=== PATIENT | male | born 1965 | race Asian ===

== ENCOUNTER 2021-11-25 22:21 | Inpatient (IN) | payer OTHER ==
[~2021-11-25] VITALS: Ht 175.3 cm; Wt 59.1 kg
--- NOTE | 2021-11-25 22:40 | NUR ---
ARIELA Hedrick FROM [facility] FOR LOW O2 SAT. ON IV LEVAQUIN FOR PHARYNGITIS. PATIENT ALERT AND ORIENTED X2. BROUGHT IN BY STRETCHER AND PLACED ON BED 03 ON MONITOR AND POX.
--- NOTE | 2021-11-25 22:46 | NUR ---
EMT @ BEDSIDE FOR EKG
--- NOTE | 2021-11-25 22:48 | NUR ---
SON IS AT BEDSIDE.
--- NOTE | 2021-11-25 23:05 | NUR ---
COVID SWAB DONE AND SENT TO LAB
[2021-11-25] MEDS ORDERED: LIDOCAINE 2% JEL UROJET 10 ML MM ONE ×2 (23:13→23:18)
[2021-11-25] MEDS ORDERED: ACETAMINOPHEN 650 MG/SUPP.RECT RC ONE ×3 (23:24→23:36)
[2021-11-25] MEDS ORDERED: IV NS 0.9% 1,000 ML BAG IV ONE (23:30)
[2021-11-25] MEDS ORDERED: VANCOMYCIN 1 GM in IV D5W 250 ML IV ONE (23:30)
[2021-11-25] MEDS ORDERED: PIPERACILLIN /TAZOBACTAM 3.375 G in IV D5W 50 ML IV ONE (23:30)
[2021-11-25] MEDS ORDERED: PIPERACILLIN /TAZOBACTAM 3.375 G VIAL IV ONE (23:35)
[2021-11-25] MEDS ORDERED: VANCOMYCIN 1 GM VIAL ONE (23:35)
--- NOTE | 2021-11-25 23:35 | NUR ---
BLOOD COLLECTED AND SENT TO LAB
[2021-11-25 23:38] LABS: ABG BASE EXCESS -5.5 mmol/L; ABG PCO2 28.6 mmHg (35.0-45.0); ABG PH 7.403 (7.350-7.450); ABG PO2 73.2 mmHg (75.0-100.0); COHb 0.3 % (0.5-1.5); MetHb 0.4 % (0.0-1.5); O2Hb 93.7 % (94.0-97.0); SITE, ABG Right Radial; VENT MODE, BG 15L NRB
[2021-11-25 23:53] LABS: BILIRUBIN,URINE SMALL (NEGATIVE); COLOR,URINE YELLOW (YELLOW); LEUKOCYTE ESTERASE ,URINE NEGATIVE (NEGATIVE); NITRITE, URINE NEGATIVE (NEGATIVE); PH,URINE 5.5 (5.0-8.0); PROTEIN,URINE 30 mg/dl (NEGATIVE); UGLUCOSE NEGATIVE (NEGATIVE); UROBILINOGEN,URINE 0.2 EU/dL (0.2)
[2021-11-25 23:53] LABS: BASOPHILS % (AUTO) 0.2 % (0.0-2.0); HEMATOCRIT 58 % (39-51); HEMOGLOBIN 18.3 g/dL (13.5-17.5); LYMPHOCYTES # (AUTO) 1.2 K/uL (0.8-4.8); LYMPHOCYTES % (AUTO) 8.1 % (20.0-44.0); MEAN CORPUSCULAR HGB CONC 32 g/dl (31.0-36.0); MEAN CORPUSCULAR VOLUME 89 fL (80-96); MONOCYTES # (AUTO) 0.4 K/uL (0.1-1.30); MONOCYTES % (AUTO) 2.8 % (2.0-12.0); NEUTROPHILS # (AUTO) 12.9 K/uL (1.8-8.9); NEUTROPHILS % (AUTO) 88.9 % (43.0-81.0); PLATELET COUNT (AUTO) 245 K/uL (150-450); RED BLOOD CELL COUNT(AUTO) 6.46 MIL/uL (4.5-6.0); WHITE BLOOD COUNT (AUTO) 14.6 K/uL (4.3-11.0)
[2021-11-26] VITALS (14 sets, daily range): BP systolic 88–124; BP diastolic 57–94
[2021-11-26] MEDS ORDERED: ONDANSETRON HCL/PF 4 MG/2 ML VIAL IVP PRN
[2021-11-26] MEDS ORDERED: PROPOFOL 100 ML ONE ×2 (00:16→07:21)
[2021-11-26 00:22] LABS: ALANINE AMINOTRANSFERASE 23 U/L (12-78); ALBUMIN 3.9 g/dL (3.4-5.0); ALKALINE PHOSPHATASE 74 U/L (46-116); ASPARTATE AMINOTRANSFERASE 31 U/L (15-37); BILIRUBIN,DIRECT 0.3 mg/dL (0.0-0.2); CALCIUM, SERUM 8.9 mg/dL (8.5-10.1); CARBON DIOXIDE 22 mmol/L (21-32); CREATININE 1.9 mg/dL (0.6-1.3); GLUCOSE 151 mg/dL (74-106); POTASSIUM 3.3 mmol/L (3.5-5.1); TOTAL PROTEIN, SERUM 9.7 g/dL (6.4-8.2); UREA NITROGEN, BLOOD 36 mg/dL (7-18)
[2021-11-26 00:24] LABS: CHLORIDE 126 mmol/L (98-107); SODIUM SERUM 168 mmol/L (136-145)
--- NOTE | 2021-11-26 00:25 | NUR ---
0019 15MG ETOMIDATE 0020 50MG ROCURNOIUM 0022 INTUBATED ET TUBE SIZE 7. 23 AT THE LIP. POSITIVE COLOR CHANGE. 0024 16F NG TUBE INSERTED @65. PLACEMENT CONFIRMED VIA AUSCULTATION AND +STOMACH CONTENTS WITHDRAWN. XRAY AT BEDSIDE TO CONFIRM PLACEMENT
--- NOTE | 2021-11-26 00:37 | NUR ---
RT pt intubated and placed on mechanical vent per airway safety. ett size 7.0, 22@lip. vent settings: AC 24 132610% +5. vent plugged in to red outlet. ambu bag at bedside. lung sounds course. pepper thick secretions suctioned via ett. no sob, no resp distress. will continue to monitor.
--- NOTE | 2021-11-26 00:55 | NUR ---
PT TRANSPORTED TO CT
[2021-11-26] MEDS ORDERED: DEXTROSE 50%-WATER 50 ML DISP.SYRIN IV PRN (01:00)
[2021-11-26] MEDS ORDERED: IV D5/ 0.9% NACL 1,000 ML IV PRN (01:00)
--- NOTE | 2021-11-26 01:12 | NUR ---
PT RETURNED FROM CT
--- NOTE | 2021-11-26 01:14 | NUR ---
RT pt taken to ct and back. no complications during transportation or procedure. ambu bag on hand. vent plugged in to red outlet upon return.
--- NOTE | 2021-11-26 01:47 | NUR ---
NG TUBE ADVANCED TO 70 PER RADIOLOGIST REPORT RECOMMENDATION
[2021-11-26] MEDS ORDERED: LEVETIRACETAM (500MG) 500 MG/5 ML VIAL IV ONE (01:50)
[2021-11-26] MEDS ORDERED: DEXAMETHASONE SOD PHOSPHATE 10 MG/ML VIAL ONE (01:50)
--- NOTE | 2021-11-26 01:56 | NUR ---
SHAWNA, SON: [phone]
[2021-11-26] MEDS: LEVETIRACETAM (500MG) 1,000 MG in IV NS 0.9% 100 ML IV SCH ×3 (01:59→21:27)
[2021-11-26] MEDS ORDERED: DEXAMETHASONE SOD PHOSPHATE 10 MG/ML VIAL IV ONE (02:00)
--- NOTE | 2021-11-26 02:03 | NUR ---
NEW VENT SETTING: AC28, FiO2: 50%, TV:500, PEEP 5
[2021-11-26 02:14] LABS: ABG BASE EXCESS -5.4 mmol/L; ABG PCO2 35.1 mmHg (35.0-45.0); ABG PH 7.356 (7.350-7.450); ABG PO2 363.8 mmHg (75.0-100.0); COHb 0.3 % (0.5-1.5); MetHb 0.6 % (0.0-1.5); O2Hb 98.3 % (94.0-97.0); PEEP,BG 5 cm H2O; SITE, ABG Right Radial; VENT MODE, BG AC24 500 100 +5; VT, ABG 500 mL
[2021-11-26 04:57] LABS: CALCIUM, SERUM 7.9 mg/dL (8.5-10.1); CREATININE 1.7 mg/dL (0.6-1.3); MAGNESIUM 2.5 mg/dL (1.8-2.4); PHOSPHORUS 3.4 mg/dL (2.5-4.9)
[2021-11-26 05:08] LABS: POTASSIUM 3.4 mmol/L (3.5-5.1)
[2021-11-26] MEDS ORDERED: PIPERACILLIN /TAZOBACTAM 3.375 G VIAL IV ONE (05:09)
[2021-11-26] MEDS ORDERED: ZOSYN IVPB 3.375 G in IV D5W 50ml IV ONE (05:30)
[2021-11-26 05:37] LABS: BASOPHILS % (AUTO) 0.1 % (0.0-2.0); HEMATOCRIT 48 % (39-51); HEMOGLOBIN 15.3 g/dL (13.5-17.5); LYMPHOCYTES # (AUTO) 0.6 K/uL (0.8-4.8); LYMPHOCYTES % (AUTO) 6.1 % (20.0-44.0); MEAN CORPUSCULAR HGB CONC 32 g/dl (31.0-36.0); MEAN CORPUSCULAR VOLUME 90 fL (80-96); MONOCYTES # (AUTO) 0.4 K/uL (0.1-1.30); MONOCYTES % (AUTO) 4.1 % (2.0-12.0); NEUTROPHILS # (AUTO) 9.1 K/uL (1.8-8.9); NEUTROPHILS % (AUTO) 89.7 % (43.0-81.0); PLATELET COUNT (AUTO) 147 K/uL (150-450); RED BLOOD CELL COUNT(AUTO) 5.34 MIL/uL (4.5-6.0); WHITE BLOOD COUNT (AUTO) 10.1 K/uL (4.3-11.0)
[2021-11-26] MEDS: BLOOD SUGAR DIAGNOSTIC 1 EACH STRIP IN SCH ×3 (06:00→17:38)
[2021-11-26] MEDS ORDERED: ETOMIDATE 2 MG/ML VIAL IV ONE ×2 (06:00→08:04)
[2021-11-26] MEDS ORDERED: INSULIN REGULAR, HUMAN 100 UNIT/ML 10 ML VIAL ONE (06:05)
[2021-11-26] MEDS: INSULIN REGULAR, HUMAN 100 UNIT/ML 3 ML VIAL SQ PRN ×3 (06:21→17:25)
[2021-11-26] MEDS: IV D5W 1,000 ML IV PRN ×2 (06:33→17:10)
--- NOTE | 2021-11-26 06:59 | NUR ---
ICU 253
[2021-11-26] MEDS ORDERED: MIRT-121 PO (07:36)
[2021-11-26] MEDS ORDERED: CALC1TAB91 PO (07:36)
[2021-11-26] MEDS ORDERED: OMEG-88 PO (07:36)
[2021-11-26] MEDS ORDERED: MULT-439 PO (07:36)
[2021-11-26] MEDS ORDERED: CHOL200013 PO (07:36)
[2021-11-26] MEDS ORDERED: LEVO500P10 IV (07:36)
[2021-11-26] MEDS ORDERED: ATOR80TA PO (07:36)
[2021-11-26] MEDS ORDERED: CRAN3875 PO (07:36)
[2021-11-26] MEDS ORDERED: ACET-2605 PO (07:36)
[2021-11-26] MEDS ORDERED: AMIN30LI2 PO (07:36)
[2021-11-26] MEDS ORDERED: DOCU-141 PO (07:36)
[2021-11-26] MEDS ORDERED: CRAN425C6 PO (07:36)
--- NOTE | 2021-11-26 07:44 | NUR ---
NEW ROOM 255
--- NOTE | 2021-11-26 07:48 | NUR ---
REPORT GIVEN TO NURSE MAYER FROM ICU FOR SID
[2021-11-26] MEDS ORDERED: ROCURONIUM BROMIDE 50 MG/5 ML IV ONE (08:04)
--- NOTE | 2021-11-26 08:10 | NUR ---
RN NOTE RECEIVED REPORT FROM JERSEY STRANGE IN ER. AWAITING PATIENT ARRIVAL
--- NOTE | 2021-11-26 08:38 | NUR ---
THE PATIENT IS TRANSFERED TO [facility] IN STABLE CONDITION AND PER ACLS POLICY.
[2021-11-26] MEDS ORDERED: POTASSIUM CL. PREMIX PERIPHER. 50 ML IV SCH (11:00)
[2021-11-26] MEDS: ZOSYN IVPB 4.5 G in IV D5W 50ml IV SCH ×3 (11:57→23:35)
[2021-11-26 12:21] LABS: BACTERIA,URINE None seen /HPF (None Seen); SQUAMOUS EPITHELIAL CELL,UR Rare /HPF (None Seen); WBC,URINE 0-2 /HPF (0-3)
[2021-11-26] MEDS: PROPOFOL 100 ML IV PRN ×2 (15:38→21:26)
[2021-11-26 16:10] LABS: ABG BASE EXCESS -7.3 mmol/L; ABG OXYGEN SATURATION 96.8 % (92.0-98.5); ABG PCO2 23.3 mmHg (35.0-45.0); ABG PH 7.422 (7.350-7.450); ABG PO2 91.1 mmHg (75.0-100.0); AaDO2 239.2 mmHg; MetHb 0.2 % (0.0-1.5); O2Hb 96.6 % (94.0-97.0); PEEP,BG 5 cm H2O; SITE, ABG Right Radial; VT, ABG 500 mL
--- NOTE | 2021-11-26 16:28 | NUR ---
RN NOTE DR. CASTANEDA NOTIFIED OF PATIENT'S TROPONIN 3.269
--- NOTE | 2021-11-26 16:39 | NUR ---
RN NOTE NOTIFIED DR. CASTANEDA OF LACTIC ACID 2.6
--- NOTE | 2021-11-26 18:59 | NUR ---
RN NOTE PATIENT IS IN BED WITH HOB AT SEMI FOWLERS POSITION. PATIENT IS ON VENT WITH NO SIGNS OF LABORED BREATHING. PRATHER CATHETER IS IN PLACE. LAC 18, LWRIST, AND LHAND IV ACCESS ARE ALL PATENT AND INTACT. BED IS LOCKED IN THE LOWEST POSITION, 3 GUARD RAILS RAISED, CALL REYNOLDS WITHIN REACH, AND ALL HOSPITAL SAFETY PRECAUTIONS ARE BEING FOLLOWED. PATIENT REMAINED STABLE THROUGHOUT SHIFT. WILL ENDORSE TO SENIOR STRATEGY ANALYST RN.
[2021-11-26 19:20] LABS: BAND % (MANUAL) 8 % (0.0-5.0); LYMPHOCYTES % (MANUAL) 17 % (16-48); MONOCYTES % (MANUAL) 1 % (0-11.0); NEUTROPHILS % (MANUAL) 74 (42-76)
--- NOTE | 2021-11-26 20:00 | NUR ---
RN/ICU-RECEIVED PT. ON THE VENT PER ETT, ON AC MODE, FIO2-50%, SATS.-98%, EKG SR W/ HR-72, POST SEDATED W/ DIPRIVAN GTT. AT 30 MCG/KG/MIN. NO JAEGER.NGT IN PLACE AND CLAMPED. FC IN PLACE W/ MODERATE AMOUNT OF U/O. AFEBRILE ,NO S/S OF PAIN OR DISTRESS. ON AIRBORNE/DROPLET ISOLATION PENDING PCR FOR COVID 19.PRECAUTIONS IN EFFECT.
--- NOTE | 2021-11-26 21:40 | NUR ---
RN/ICU-SPOKE TO NATO JERRY REGARDING PT. PT/INR-15.2/1.48. SHE WILL REORDER ANOTHER COAGS. PER XRAY DEPARTMENT ZIA, THE COAG. HAS TO BE NORMAL TO PERFORM CT GUIDED NEEDLE BIOPSY/DRAINAGE OF ABDOMINAL NECROTIC LYMPH NODE VS MASS.
[2021-11-26] MEDS: VANCOMYCIN 1 GM in IV D5W 250ml IV SCH (22:52)
[2021-11-27] VITALS (31 sets, daily range): BP systolic 82–131; BP diastolic 66–89
[2021-11-27] MEDS: BLOOD SUGAR DIAGNOSTIC 1 EACH STRIP IN SCH ×5 (00:04→23:29)
[2021-11-27] MEDS: INSULIN REGULAR, HUMAN 100 UNIT/ML 3 ML VIAL SQ PRN ×3 (00:05→23:29)
[2021-11-27] MEDS: PROPOFOL 100 ML IV PRN ×3 (04:00→22:25)
[2021-11-27] MEDS: ZOSYN IVPB 4.5 G in IV D5W 50ml IV SCH ×3 (05:49→18:38)
[2021-11-27 06:13] LABS: HEMATOCRIT 45 % (39-51); HEMOGLOBIN 14.4 g/dL (13.5-17.5); LYMPHOCYTES % (AUTO) 6.9 % (20.0-44.0); MEAN CORPUSCULAR HGB CONC 32 g/dl (31.0-36.0); MEAN CORPUSCULAR VOLUME 88 fL (80-96); MONOCYTES # (AUTO) 0.4 K/uL (0.1-1.30); MONOCYTES % (AUTO) 3.2 % (2.0-12.0); NEUTROPHILS # (AUTO) 12.5 K/uL (1.8-8.9); NEUTROPHILS % (AUTO) 89.9 % (43.0-81.0); PLATELET COUNT (AUTO) 125 K/uL (150-450); RED BLOOD CELL COUNT(AUTO) 5.07 MIL/uL (4.5-6.0); WHITE BLOOD COUNT (AUTO) 13.9 K/uL (4.3-11.0)
--- NOTE | 2021-11-27 06:30 | NUR ---
RN/ICU-FOR CT GUIDED NEEDLE BIOPSY/ DRAINAGE OF ABDOMINAL NECROTIC LYMPH NODE VS MASS, ATTEMPTED TO GET HOLD OF SISTER JERI FOR CONSENT(TEL. NO-[phone]), MESSAGE LEFT, ALSO CALLED SISTER MICHAELA DEL RIO AT PHONE NO. [phone] TO NO AVAIL, WILL FOLLOW UP TODAY.
[2021-11-27 07:05] LABS: CALCIUM, SERUM 8.6 mg/dL (8.5-10.1); CREATININE 2.4 mg/dL (0.6-1.3); MAGNESIUM 2.2 mg/dL (1.8-2.4); PHOSPHORUS 3.3 mg/dL (2.5-4.9); POTASSIUM 3.4 mmol/L (3.5-5.1)
--- NOTE | 2021-11-27 07:23 | NUR ---
RN OPENING NOTE RECEIVE REPORT FROM HYDROBLASTER NURSE. PATIENT IN STABLE CONDITION. REQUIRING VENTILATOR SUPPORT. VENT SETTING: AC 28, TV 500, FIO2 50%, PEEP 5. PATIENT IS SEDATED ON PROPOFOL DRIP @ 30MCG/KG/MIN. RUNNING D5W @ 100ML/HR. WILL FOLLOW MORNING LAB AND DOCTOR ORDERS. PROPER ISOLATION PRECAUTION IN PLACE. ALL SAFETY MEASURE IN PLACE. BED ON LOWEST POSITION WITH HOB ELEVATED WITH 3 SIDE RAIL UP. WILL CONTINUE TO MONITOR.
[2021-11-27 08:04] LABS: ABG BASE EXCESS -4.4 mmol/L; ABG OXYGEN SATURATION 98.6 % (92.0-98.5); ABG PCO2 21.7 mmHg (35.0-45.0); ABG PO2 138.2 mmHg (75.0-100.0); AaDO2 193.9 mmHg; COHb 0.3 % (0.5-1.5); MetHb 0.2 % (0.0-1.5); O2Hb 98.1 % (94.0-97.0); PEEP,BG 5 cm H2O; SITE, ABG Right Radial; VT, ABG 500 mL
[2021-11-27] MEDS: LEVETIRACETAM (500MG) 1,000 MG in IV NS 0.9% 100 ML IV SCH (09:20)
[2021-11-27] MEDS: IV D5W 1,000 ML IV PRN ×2 (09:30→23:50)
[2021-11-27] MEDS ORDERED: POTASSIUM CL. PREMIX PERIPHER. 50 ML IV SCH (10:00)
[2021-11-27] MEDS: GLUCERNA 1.2 1,000 ML BOTTLE NG PRN (16:29)
--- NOTE | 2021-11-27 19:05 | NUR ---
RECEIVED PT ON BED SEDATED ON ETT/VENT SETTING PER MD FIO2 30% PEEP 5 SPO2 100% NO SIGN OF RESPIRATORY DISTRESS, TELE MONITOR READS SINUS RHYTHM 70'S HAVE ONGOING DIPRIVAN @ 35MCG/KG/MIN AND D5W@50ML/HR INFUSING VIA RAC#18 INFUSING WELL, HAVE PRATHER CATHETER WITH PINK TINGED URINE DRAINING VIA GRAVITY MD IS AWARE PER AM SHIFT NURSE, BED ON LOWEST POSITION AND LOCKED SIDE RAILS UP X2 HAVE BILATERAL WRIST SOFT RESTRAINTS FOR SELF EXTUBATION PRECAUTION, CIRCULATION WILL BE MONITOR REGULARLY, WILL CONT TO MONITOR
--- NOTE | 2021-11-27 19:15 | NUR ---
RN CLOSING NOTE PATIENT IN STABLE CONDITION. REMAIN ON VENTILATOR. SETTING, AC 16, TV 500, FIO2 30%, PEEP 5. BLOOD IN URINE VIA PRATHER CATHETER NOTED THIS AFTERNOON. DR. BHATT IS AWARE. NG TUBE FEEDING HAVE BEEN STARTED WITH GLUCERNA @ 20ML/HR. RECEIVING D5W @100ML/HR. SEDATION VACATION WAS DONE. TURN OFF SEDATION AT 1512. PATIENT ABLE TO ANSWER QUESTIONS BY NODDING HEAD. PATIENT WAS CHANGED AND REPOSITION PER PROTOCOL. PROPER ISOLATION IN PLACE. ALL SAFETY MEASURE IN PLACE. BED ON LOWEST POSITION WITH HOB ELEVATED AND 3 SIDE RAIL UP. REPORT WAS GIVEN TO BROOMMAKER NURSE.
[2021-11-27] MEDS: PROSOURCE / PROSTAT (PYXIS) 30 ML UDC NG SCH (19:50)
[2021-11-27] MEDS: LEVETIRACETAM SOL (5 ML) 100 MG/ML UDC GT SCH (20:35)
[2021-11-27] MEDS: ATORVASTATIN 40 MG TABLET NG SCH (21:03)
[2021-11-27] MEDS: MIRTAZAPINE 15 MG TABLET NG SCH (21:04)
[2021-11-27] MEDS: VANCOMYCIN 1 GM in IV D5W 250ml IV SCH (23:49)
[2021-11-28] VITALS (51 sets, daily range): BP systolic 89–148; BP diastolic 68–110
[2021-11-28] MEDS: ZOSYN IVPB 4.5 G in IV D5W 50ml IV SCH ×5 (00:32→23:34)
[2021-11-28] MEDS: INSULIN REGULAR, HUMAN 100 UNIT/ML 3 ML VIAL SQ PRN ×4 (06:10→23:33)
[2021-11-28] MEDS: BLOOD SUGAR DIAGNOSTIC 1 EACH STRIP IN SCH ×4 (06:11→23:33)
[2021-11-28] MEDS: PROPOFOL 100 ML IV PRN (06:11)
--- NOTE | 2021-11-28 07:19 | NUR ---
PT ON BED STILL SEDATED ON ETT/VENT SETTING PER MD SPO2 97% NO SIGN OF RESPIRATORY DISTRESS, NO SIGNIFICANT CHANGES ON CONDITION NOTED ALL NEEDS ATTENDED STILL ON PROPOFOL 35MCG/KG/MIN AND D5W @50ML/HR INFUSING VIA LAC#18, PRATHER CATHETER 450 URINE OUTPUT BED ON LOWEST POSITION AND LOCKED SIDE RAILS UP X2 STILL WITH BILATERAL SOFT WRIST RESTRAINTS, ENDORSED TO AM SHIFT
--- NOTE | 2021-11-28 07:30 | NUR ---
RN OPENING NOTES Patient received sedated and Mechanical ventilator with tidal volume of 500, fi02 30 peep 5. Patient is sedated on diprivan running at 35 mcg and d5w at 50 ml/hour. Patient noted with lac 18 gauze left wrist 22 gauze and left hand 22 gauze.Titration begun for diprivan to taper per MD Valverde. HOB kept elevated. Patient is running glucerna at 20 cc/hour with no residuals. Will continue to monitor. Call light with in reach.
[2021-11-28 07:53] LABS: ABG BASE EXCESS -5.2 mmol/L; ABG OXYGEN SATURATION 96.8 % (92.0-98.5); ABG PCO2 28.8 mmHg (35.0-45.0); ABG PH 7.414 (7.350-7.450); ABG PO2 89.2 mmHg (75.0-100.0); AaDO2 90.9 mmHg; COHb 0.3 % (0.5-1.5); MetHb 0.4 % (0.0-1.5); O2Hb 96.1 % (94.0-97.0); SITE, ABG Right Radial
--- NOTE | 2021-11-28 09:00 | NUR ---
Patient's ventilator mode changed to SIMV AC 4 PRESSURE SUPPORT 12 TV 500 PEEP 5 AND FI02 OF 30.
[2021-11-28] MEDS: CHOLECALCIFEROL 1,000 UNIT TABLET (VIT D3) NG SCH (09:04)
[2021-11-28] MEDS: LEVETIRACETAM SOL (5 ML) 100 MG/ML UDC GT SCH ×2 (09:04→20:50)
[2021-11-28] MEDS: PROSOURCE / PROSTAT (PYXIS) 30 ML UDC NG SCH ×3 (09:07→16:56)
[2021-11-28 09:26] LABS: BASOPHILS % (AUTO) 0.1 % (0.0-2.0); EOSINOPHILS % (AUTO) 0.1 % (0.0-6.0); HEMATOCRIT 44 % (39-51); HEMOGLOBIN 14.1 g/dL (13.5-17.5); LYMPHOCYTES % (AUTO) 6.5 % (20.0-44.0); MEAN CORPUSCULAR HGB CONC 32 g/dl (31.0-36.0); MEAN CORPUSCULAR VOLUME 88 fL (80-96); MONOCYTES # (AUTO) 0.4 K/uL (0.1-1.30); MONOCYTES % (AUTO) 2.8 % (2.0-12.0); NEUTROPHILS # (AUTO) 13.2 K/uL (1.8-8.9); NEUTROPHILS % (AUTO) 90.5 % (43.0-81.0); PLATELET COUNT (AUTO) 118 K/uL (150-450); RED BLOOD CELL COUNT(AUTO) 5.02 MIL/uL (4.5-6.0); WHITE BLOOD COUNT (AUTO) 14.6 K/uL (4.3-11.0)
--- NOTE | 2021-11-28 09:30 | NUR ---
Received call from radiology for clearence for CT of abdomen/pelvis per reccomendations from nephrology. Informed MD Zeng
[2021-11-28 09:58] LABS: CALCIUM, SERUM 8.3 mg/dL (8.5-10.1); CREATININE 2.3 mg/dL (0.6-1.3); MAGNESIUM 2.6 mg/dL (1.8-2.4); POTASSIUM 3.6 mmol/L (3.5-5.1)
--- NOTE | 2021-11-28 10:53 | NUR ---
Per MD Zeng to hold CT with contrast, radiology made aware.
--- NOTE | 2021-11-28 16:00 | NUR ---
Patient switched back to previous AC setting on mechanical ventilator by RT.
[2021-11-28] MEDS: GLUCERNA 1.2 1,000 ML BOTTLE NG PRN (16:52)
[2021-11-28] MEDS: IV D5W 1,000 ML IV PRN (16:54)
--- NOTE | 2021-11-28 18:48 | NUR ---
SEWAGE TREATMENT PLANT OPERATOR CLOSING NOTES Patient obtunded and on AC setting on Mechanical ventilator with tidal volume of 500, fi02 30 peep 5. Patient is on d5w at 50 ml/hour. Patient noted with lac 18 gauze and left upper arm mid line running d5. HOB kept elevated. Patient is running glucerna at 20 cc/hour with no residuals. Patient noted with urine ouput of 900 cc during shift.Will continue to monitor. Call light with in reach.
--- NOTE | 2021-11-28 19:10 | NUR ---
RECEIVED PT ON BED OBTUNDED OPEN EYES TO STIMULI BUT NOT FOLLOWING ANY COMMANDS ON ETT/VENT SETTING PER MD FIO2 30% PEEP 5 SPO2 98% NO SIGN OF RESPIRATORY DISTRESS, TELE MONITOR READS SINUS RHYTHM 70'S HAVE ONGOING D D5W@50ML/HR INFUSING VIA RODRI ML INFUSING WELL, HAVE PRATHER CATHETER WITH YELLOW URINE DRAINING VIA GRAVITY HAVE RIGHT NGTUBE ON PLACE WITH ONGOING GLUCERNA @ 20ML/HR RESIDUAL 10ML, BED ON LOWEST POSITION AND LOCKED SIDE RAILS UP X2 HAVE BILATERAL WRIST SOFT RESTRAINTS FOR SELF EXTUBATION PRECAUTION, CIRCULATION WILL BE MONITOR REGULARLY, WILL CONT TO MONITOR
[2021-11-28] MEDS: MIRTAZAPINE 15 MG TABLET NG SCH (21:05)
[2021-11-28] MEDS: ATORVASTATIN 40 MG TABLET NG SCH (21:05)
[2021-11-28 21:22] LABS: CREATININE, URINE 61.6 MG/DL (30.0-125.0)
--- NOTE | 2021-11-28 21:32 | NUR ---
PT INTUBATED 7.0 ETT SECURED AT 26CM. NO REPS DISTRESS NOTED, PT TOLERATING VENT SETTINGS. SX'D SMALL AMT OF THICK HARDING SECRETIONS. VENT ALARMS SET AND AUDIBLE. CONTINUE TO MONITOR. Addendum: 11/28/21 at 2134 by ELIZA LOPEZ RT Amended: Links added.
[2021-11-28] MEDS: VANCOMYCIN 1 GM in IV D5W 250ml IV SCH (22:39)
[2021-11-29] VITALS (31 sets, daily range): BP systolic 105–140; BP diastolic 70–94
[2021-11-29] MEDS: ZOSYN IVPB 4.5 G in IV D5W 50ml IV SCH ×3 (05:14→17:06)
[2021-11-29 05:45] LABS: CREATININE 1.7 mg/dL (0.6-1.3); POTASSIUM 2.9 mmol/L (3.5-5.1)
[2021-11-29] MEDS: BLOOD SUGAR DIAGNOSTIC 1 EACH STRIP IN SCH ×4 (06:02→23:02)
[2021-11-29] MEDS: INSULIN REGULAR, HUMAN 100 UNIT/ML 3 ML VIAL SQ PRN ×2 (06:03→23:13)
--- NOTE | 2021-11-29 06:48 | NUR ---
PT ON BED STILL OBTUNDED OPEN EYES TO PAIN STIMULI BUT NOT FOLLOWING ANY COMMANDS ON ETT/VENT SETTING PER MD SPO2 97% NO SIGN OF RESPIRATORY DISTRESS, NO SIGNIFICANT CHANGES ON CONDITION NOTED ALL NEEDS ATTENDED STILL ON D5W @50ML/HR INFUSING VIA KHUSHI ML, PRATHER CATHETER 950 URINE OUTPUT BED ON LOWEST POSITION AND LOCKED SIDE RAILS UP X2 STILL WITH BILATERAL SOFT WRIST RESTRAINTS, WILL CON TTO MONITOR
--- NOTE | 2021-11-29 06:49 | NUR ---
REPORTED TO HOSPITALIST GEOFFREY TREJO HOOP ROLLS OPERATOR THAT K+ LEVEL IS 2.9 WITH ORDER KCL 40MEQ VIA GTUBE NOTED AND CARRIED OUT
[2021-11-29] MEDS ORDERED: POTASSIUM CHLORIDE 20 MEQ POWDER PACKET GT ONE (07:30)
[2021-11-29] MEDS ORDERED: POTASSIUM CHLORIDE 20 MEQ POWDER PACKET GT SCH (08:30)
[2021-11-29] MEDS: CHOLECALCIFEROL 1,000 UNIT TABLET (VIT D3) NG SCH (08:47)
[2021-11-29] MEDS: LEVETIRACETAM SOL (5 ML) 100 MG/ML UDC GT SCH ×2 (08:47→21:03)
[2021-11-29] MEDS: IV D5W 1,000 ML IV PRN (13:43)
[2021-11-29] MEDS: Potassium Chloride 20 MEQ in IV D5W 1,000 ML IV SCH (17:04)
[2021-11-29] MEDS: GLUCERNA 1.2 1,000 ML BOTTLE NG SCH (18:38)
--- NOTE | 2021-11-29 19:27 | NUR ---
RN NOTES Patient obtunded and on AC setting on Mechanical ventilator with tidal volume of 500, fi02 30 peep 5. Patient is on d5 K at 60 ml/hour. Patient noted with lac 18 gauze and left upper arm mid line running d5K. HOB kept elevated. Patient is running Glucerna at 30 cc/hour with 10CC residuals. Goal 45 cc tube feeding. Pt expelled light blood tinged mucous. RT notified and helped with suctioning. Patient noted with urine ouput of 600 cc during shift.Will continue to monitor.
--- NOTE | 2021-11-29 20:00 | NUR ---
RN OPENING NOTE RECEIVED PATIENT IN BED. OBTUNDED. ON MECHANICAL VENT06/07 AC 16 TV 500 FIO2 30% PEEP 5. RESPIRATIONS ARE EVEN AND UNLABORED. NO S/S SOB NOTED. NO S/S PAIN NOTED. NO APPARENT DISTRESS. IV ACCESS IN LAC#18 PATENT AND SALINE LOCKED, KHUSHI MIDLINE RUNNING 20MEQ KCL D5W@60MK/HR. OG TUBE RESIDUAL 5CC, RUNNING GLUCERNA @30ML/HR. PRATHER CATHETER DRAINING TO GRAVITY URINE IS YELLOW WITH SEDIMENT. BED IS LOW AND LOCKED, HOB ELEVATED IN SEMI FOWLERS, SIDE RAILS UP X2, . ALARMS ON AND SAFETY PRECAUTIONS IN PLACE.
--- NOTE | 2021-11-29 20:17 | NUR ---
PT INTUBATED 7.0 ETT SECURED AT 26CM. NO REPS DISTRESS NOTED, PT TOLERATING VENT SETTINGS. SX'D SMALL AMT OF THICK HARDING SECRETIONS. VENT ALARMS SET AND AUDIBLE. CONTINUE TO MONITOR. Addendum: 11/29/21 at 2018 by ELIZA LOPEZ RT Amended: Links added.
--- NOTE | 2021-11-29 20:47 | NUR ---
RN NOTE CALLED RADIOLOGY TO INFORM THEM I DO NOT HAVE RESULTS FOR CT OF CHEST /ABD. THEY WILL CHECK THEIR WOOD GLUER TO SEE IF IT HAS CROSSED OVER. IF IT HAS THEY WILL CALL FOR AN UPDATE. AWAITING RESULTS.
--- NOTE | 2021-11-29 20:52 | NUR ---
RN NOTE RADIOLOGY CALLED BACK. THEY DID READ CT CHEST AND ABD BUT IT HAS NOT "CROSSED BACK OVER". PHYSICIAN SUPPORT COORDINATOR DID CALL THEIR ROAD MACHINERY INSPECTOR TO HAVE IT FIGURED OUT. STILL AWAITING RESULTS.
[2021-11-29] MEDS: MIRTAZAPINE 15 MG TABLET NG SCH (21:03)
[2021-11-29] MEDS: ATORVASTATIN 40 MG TABLET NG SCH (21:03)
--- NOTE | 2021-11-29 21:46 | NUR ---
RN NOTE ZIA FROM RADIOLOGY CALLED TO INFORM ME THEY STILL DO NOT HAVE RESULTS. SHE WILL CALL AGAIN TO HAVE RESULTS READ. STILL AWAITING RESULTS. WAS GIVEN A NUMBER TO CALL IF RESULTS ARE NOT OBTAINED WITHIN AN HOUR.
[2021-11-29] MEDS: VANCOMYCIN 1 GM in IV D5W 250ml IV SCH (23:02)
[2021-11-30] VITALS (46 sets, daily range): BP systolic 107–159; BP diastolic 51–105
[2021-11-30] MEDS: ZOSYN IVPB 4.5 G in IV D5W 50ml IV SCH ×3 (00:21→11:00)
[2021-11-30] MEDS: BLOOD SUGAR DIAGNOSTIC 1 EACH STRIP IN SCH ×3 (05:04→17:22)
[2021-11-30] MEDS: INSULIN REGULAR, HUMAN 100 UNIT/ML 3 ML VIAL SQ PRN ×2 (05:32→12:14)
[2021-11-30 06:01] LABS: CALCIUM, SERUM 8.4 mg/dL (8.5-10.1); CREATININE 1.3 mg/dL (0.6-1.3); POTASSIUM 3.6 mmol/L (3.5-5.1)
--- NOTE | 2021-11-30 06:35 | NUR ---
RN CLOSING NOTE RESTING IN BED. OBTUNDED. REMAINS ON MECHANICAL VENT, NO CHANGES IN SETTINGS. NO RESP DISTRESS. SUCTION PINK TINGE / THICK MUCUS FROM MOUTH. NO S/S PAIN. KHUSHI MIDLINE RUNNING 20MEQ KCL D5W@60MK/HR. RIGHT NG TUBE INCREASED FEEDING TO GLUCERNA @40ML/HR. GOAL IS 45CC/HR. PRATHER CATHETER OUTPUT 825CC. BED REMAINS LOW AND LOCKED, HOB ELEVATED IN SEMI FOWLERS, SIDE RAILS UP X2 . ALARMS ON AND SAFETY PRECAUTIONS IN PLACE. WILL ENDORSE TO ONCOMING SHIFT.
--- NOTE | 2021-11-30 07:00 | NUR ---
RN NOTE RECEIVED PATIENT IN BED. OBTUNDED. ON MECHANICAL VENT06/07 AC 16 TV 500 FIO2 30% PEEP 5. RESPIRATIONS ARE EVEN AND UNLABORED. NO S/S SOB NOTED. NO S/S PAIN NOTED. NO APPARENT DISTRESS. IV ACCESS IN LAC#18 PATENT AND SALINE LOCKED, KHUSHI MIDLINE RUNNING 20MEQ KCL D5W@60MK/HR. OG TUBE RESIDUAL 5CC, RUNNING GLUCERNA @30ML/HR. PRATHER CATHETER DRAINING TO GRAVITY URINE IS YELLOW WITH SEDIMENT. BED IS LOW AND LOCKED, HOB ELEVATED IN SEMI FOWLERS, SIDE RAILS UP X3, BED LOCKED AND IN LOWEST POSITION, CONTINUE TO MONITOR.
[2021-11-30] MEDS: CHOLECALCIFEROL 1,000 UNIT TABLET (VIT D3) NG SCH (08:06)
[2021-11-30] MEDS: LEVETIRACETAM SOL (5 ML) 100 MG/ML UDC GT SCH ×2 (08:06→21:45)
[2021-11-30] MEDS: Potassium Chloride 20 MEQ in IV D5W 1,000 ML IV SCH (08:07)
[2021-11-30] MEDS ORDERED: NALOXONE PREFILLED SYRINGE 2 MG/2 ML SYRINGE IV ONE (12:00)
[2021-11-30] MEDS ORDERED: MIDAZOLAM HCL 5MG/ML VIAL 25 MG/5 ML VIAL IV ONE (12:00)
[2021-11-30] MEDS ORDERED: FENTANYL PF 250MCG/5ML AMPUL IV ONE (12:00)
--- NOTE | 2021-11-30 12:30 | NUR ---
RN NOTES PT TO CT AT THIS TIME .
[2021-11-30] MEDS ORDERED: LIDOCAINE HCL/PF 1% 30 ML SDV ONE (13:45)
--- NOTE | 2021-11-30 14:23 | NUR ---
RN NOTES PT TOLERATED BX PROCEDURE WELL, VSS STABLE , NO CONSCIOUS SEDATION GIVEN PER DR MORRIS ORDER . VSS STABLE POST BIOPSY .
--- NOTE | 2021-11-30 14:49 | NUR ---
RN NOTES PT BACK FROM CT .
[2021-11-30] MEDS: PIPERACILLIN /TAZOBACTAM 3.375 G in IV D5W 100 ML IV SCH (17:16)
--- NOTE | 2021-11-30 18:00 | NUR ---
RN NOTE PT REMAINS INTUBATED, FOLLOWS SIMPLE COMMAND AT TIMES ,REMAINS ON MECHANICAL VENT, TOLERATING VENT SETTING WELL, NO RESP DISTRESS. SUCTION PINK TINGE / THICK MUCUS FROM MOUTH. NO S/S PAIN. KHUSHI MIDLINE RUNNING 20MEQ KCL D5W@60MK/HR. RIGHT NG TUBE AT 40CC/HR RUNNING , BED REMAINS LOW AND LOCKED, HOB ELEVATED IN SEMI FOWLERS, SIDE RAILS UP X3 . ALARMS ON AND SAFETY PRECAUTIONS IN PLACE. WILL ENDORSE TO DIRECTOR OF LOSS PREVENTION NURSE FOR CONTINUITY OF CARE .
[2021-11-30] MEDS: VANCOMYCIN HCL 0.75 GM in IV D5W 250 ML IV SCH (18:37)
[2021-11-30] MEDS: ATORVASTATIN 40 MG TABLET NG SCH (21:45)
[2021-11-30] MEDS: MIRTAZAPINE 15 MG TABLET NG SCH (21:45)
[2021-11-30] MEDS: GLUCERNA 1.2 1,000 ML BOTTLE NG SCH (21:47)
[2021-12-01] VITALS (36 sets, daily range): BP systolic 125–160; BP diastolic 87–107
[2021-12-01] MEDS: INSULIN REGULAR, HUMAN 100 UNIT/ML 3 ML VIAL SQ PRN ×4 (00:19→18:05)
[2021-12-01] MEDS: BLOOD SUGAR DIAGNOSTIC 1 EACH STRIP IN SCH ×4 (00:19→17:50)
[2021-12-01] MEDS: PIPERACILLIN /TAZOBACTAM 3.375 G in IV D5W 100 ML IV SCH ×3 (02:03→17:49)
[2021-12-01] MEDS: Potassium Chloride 20 MEQ in IV D5W 1,000 ML IV SCH ×3 (03:37→21:53)
[2021-12-01] MEDS: VANCOMYCIN HCL 0.75 GM in IV D5W 250 ML IV SCH ×2 (06:03→17:50)
[2021-12-01 06:39] LABS: CALCIUM, SERUM 8.2 mg/dL (8.5-10.1); CREATININE 1.1 mg/dL (0.6-1.3); POTASSIUM 3.7 mmol/L (3.5-5.1)
--- NOTE | 2021-12-01 07:41 | NUR ---
RN MORNING NOTE PT OBSERVED IN BED WITH HOB SEMI FOWLERS. PT IS ON MECHANICAL VENT WITH PRESCRIBED SETTINGS, TOLERATING WELL WITH NO SIGNS OF DISTRESS. PT IS ALERT AND RESPONDS TO SIMPLE COMMANDS. IV ACCESS L UA MIDLINES INFUSING WITH 20 MEQ KCL D5W @60ML/HR. R NG TUBE FEEDING WITH GLUCERNA @40 ML/HR. BED IS LOCKED IN LOWEST POSITION X2 GUARD RAILS UP, CALL LIGHT WITHIN REACH, ALL HOSPITAL SAFETY MEASURES ARE IN PLACE. WILL CONTINUE TO MONITOR THIS SHIFT.
[2021-12-01] MEDS: CHOLECALCIFEROL 1,000 UNIT TABLET (VIT D3) NG SCH (08:48)
[2021-12-01] MEDS: LEVETIRACETAM SOL (5 ML) 100 MG/ML UDC GT SCH ×2 (08:48→21:52)
--- NOTE | 2021-12-01 08:48 | NUR ---
RN NOTE ACCIDENTALLY ONLY PULLED ONE ORAL SOLUTION OF KEPPRA INSTEAD OF TWO. PULLED OUT ONE MORE ORAL SOLUTION OF KEPPRA TO MAKE FULL DOSE OF 1000MG.
--- NOTE | 2021-12-01 19:28 | NUR ---
RN CLOSING NOTE PT IS IN BED WITH HOB SEMI FOWLERS. PT IS ON MECHANICAL VENT WITH PRESCRIBED SETTINGS, TOLERATING WELL WITH NO SIGNS OF DISTRESS. PT IS ALERT AND RESPONDS TO SIMPLE COMMANDS. IV ACCESS L UA MIDLINES INFUSING WITH 20 MEQ KCL D5W @60ML/HR. R NG TUBE FEEDING WITH GLUCERNA @40 ML/HR. BED IS LOCKED IN LOWEST POSITION X2 GUARD RAILS UP, CALL LIGHT WITHIN REACH, ALL HOSPITAL SAFETY MEASURES ARE IN PLACE. ALL MEDICATIONS GIVEN AND ALL NEEDS MET. WILL ENDORSE TO RADIATION / CHEMISTRY TECHNICIAN NURSE FOR SID.
[2021-12-01] MEDS: MIRTAZAPINE 15 MG TABLET NG SCH (21:53)
[2021-12-01] MEDS: ATORVASTATIN 40 MG TABLET NG SCH (21:53)
[2021-12-01] MEDS ORDERED: IV LR 1000 ML 1,000 ML IV ONE (22:30)
[2021-12-02] VITALS (33 sets, daily range): BP systolic 116–162; BP diastolic 80–115
[2021-12-02] MEDS: BLOOD SUGAR DIAGNOSTIC 1 EACH STRIP IN SCH ×5 (01:20→23:15)
[2021-12-02] MEDS: GLUCERNA 1.2 1,000 ML BOTTLE NG SCH (01:20)
[2021-12-02] MEDS: PIPERACILLIN /TAZOBACTAM 3.375 G in IV D5W 100 ML IV SCH ×3 (01:20→18:25)
[2021-12-02 05:59] LABS: POTASSIUM 3.4 mmol/L (3.5-5.1)
[2021-12-02] MEDS: VANCOMYCIN HCL 0.75 GM in IV D5W 250 ML IV SCH ×2 (06:28→18:25)
[2021-12-02] MEDS ORDERED: POTASSIUM CHLORIDE 20 MEQ POWDER PACKET NG SCH (07:30)
--- NOTE | 2021-12-02 07:41 | NUR ---
RN MORNING NOTE PT OBSERVED IN BED WITH HOB SEMI FOWLERS. PT IS ON MECHANICAL VENT WITH PRESCRIBED SETTINGS, TOLERATING WELL WITH NO SIGNS OF DISTRESS. IV ACCESS L UA MIDLINES INFUSING WITH LR @50ML/HR X1 BAG ONLY. R NG TUBE FEEDING WITH GLUCERNA @40 ML/HR. BED IS LOCKED IN LOWEST POSITION X2 GUARD RAILS UP, ALL HOSPITAL SAFETY MEASURES ARE IN PLACE. WILL CONTINUE TO MONITOR THIS SHIFT.
[2021-12-02] MEDS: CHOLECALCIFEROL 1,000 UNIT TABLET (VIT D3) NG SCH (08:59)
[2021-12-02] MEDS: LEVETIRACETAM SOL (5 ML) 100 MG/ML UDC GT SCH ×2 (08:59→21:23)
[2021-12-02 13:41] LABS: ABG BASE EXCESS 0.9 mmol/L; ABG OXYGEN SATURATION 97.9 % (92.0-98.5); ABG PCO2 29.1 mmHg (35.0-45.0); ABG PH 7.515 (7.350-7.450); ABG PO2 106.6 mmHg (75.0-100.0); AaDO2 73.1 mmHg; COHb 0.3 % (0.5-1.5); MetHb 0.3 % (0.0-1.5); O2Hb 97.3 % (94.0-97.0); SITE, ABG Right Radial
[2021-12-02] MEDS: INSULIN REGULAR, HUMAN 100 UNIT/ML 3 ML VIAL SQ PRN ×2 (13:42→18:22)
--- NOTE | 2021-12-02 18:23 | NUR ---
RN NOTE PT BS 109. PER SLIDING SCALE, NO ACTION NEEDED AT THIS TIME.
--- NOTE | 2021-12-02 19:33 | NUR ---
RN CLOSING NOTE PT IS BED WITH HOB SEMI FOWLERS. PT IS ON MECHANICAL VENT WITH PRESCRIBED SETTINGS, TOLERATING WELL WITH NO SIGNS OF DISTRESS. IV ACCESS L UA MIDLINE AND L HAND 20G. R NG TUBE FEEDING WITH GLUCERNA @40 ML/HR TOLERATING WELL. BED IS LOCKED IN LOWEST POSITION X2 GUARD RAILS UP, ALL HOSPITAL SAFETY MEASURES ARE IN PLACE, ALL MEDS GIVEN AND ALL NEEDS MET. WILL ENDORSE TO SUPERVISOR GROVE NURSE FOR SID.
[2021-12-02] MEDS: MIRTAZAPINE 15 MG TABLET NG SCH (21:23)
[2021-12-02] MEDS: ATORVASTATIN 40 MG TABLET NG SCH (21:23)
[2021-12-03] VITALS (25 sets, daily range): BP systolic 85–147; BP diastolic 47–102
[2021-12-03] MEDS: PIPERACILLIN /TAZOBACTAM 3.375 G in IV D5W 100 ML IV SCH ×3 (01:09→17:01)
[2021-12-03] MEDS: VANCOMYCIN HCL 0.75 GM in IV D5W 250 ML IV SCH ×2 (05:26→17:01)
[2021-12-03] MEDS: BLOOD SUGAR DIAGNOSTIC 1 EACH STRIP IN SCH ×3 (05:27→17:00)
--- NOTE | 2021-12-03 07:19 | NUR ---
RN OPENING NOTES; RECEIVED PT IN BED IN SUPINE POS. PT A/OX1, CAN FOLLOW SIMPLE COMMANDS. [facility] [place] [facility] WITH SETTINGS ORDERED. PT SKIN INTACT. BL SOFT RESTRAINTS NOTED, TO BE RENEWED AT MIDNIGHT. KHUSHI ML NOTED, FLUSHED, BUT SHIFT SUPERVISOR REPORTED CANNOT GET BLOOD FROM LINE. ALL SAFETY MEASURES RENDERED, BED LOCKED IN LOWEST POS. SIDE RAILS X3, WITH CALL LIGHT WITHIN REACH. WILL CONTINUE TO MONITOR.
[2021-12-03 07:47] LABS: CALCIUM, SERUM 8.1 mg/dL (8.5-10.1); POTASSIUM 3.9 mmol/L (3.5-5.1)
[2021-12-03] MEDS: LEVETIRACETAM SOL (5 ML) 100 MG/ML UDC GT SCH ×2 (08:01→21:04)
[2021-12-03] MEDS: CHOLECALCIFEROL 1,000 UNIT TABLET (VIT D3) NG SCH (08:01)
[2021-12-03] MEDS: GLUCERNA 1.2 1,000 ML BOTTLE NG SCH (09:38)
[2021-12-03] MEDS: INSULIN REGULAR, HUMAN 100 UNIT/ML 3 ML VIAL SQ PRN ×2 (11:12→17:01)
--- NOTE | 2021-12-03 11:13 | NUR ---
RN NOTES; B/S TAKEN WITH RESULT OF 119. NO COVERAGE NEEDED PER SLIDING SCALE. WILL CONTINUE TO MONITOR.
--- NOTE | 2021-12-03 17:27 | NUR ---
RT PATIENT PLACED ON AC MODE FOR DISTRESS ON WEANING MODE. Addendum: 12/03/21 at 1728 by TOLU FOSTER RT Amended: Links added.
--- NOTE | 2021-12-03 18:47 | NUR ---
RN CLOSING NOTES; PT IN BED RESTING. PT ON [facility] VENT WITH SETTINGS ORDERED. ALL MEDICATIONS GIVEN AND TOLERATED WELL. PT DAUGHTER IN LAW CALLED AND WAS UPDATED ON PT HEALTH STATUS. PT DID WAKE UP FOR A BIT, COULD NOT MAKE OUT WHAT PT WAS SAYING. PT KEPT CLEAN, DRY AND COMFORTABLE. PT HAD BOWELL MOVEMENT ON SHIFT. ALL SAFETY MEASURES RENDERED, BED IN LOWEST POS. LOCKED, SIDE RAILS X3. NO SIGNIFICANT CHANGES IN PT HEALTH STATUS. WILL ENDORSE TO MERCHANDISE FLOW ASSOCIATE RN.
--- NOTE | 2021-12-03 19:40 | NUR ---
RN OPENING NOTE ICU RECEIVED PT IN BED, OPENS EYES, DROWSY, NO DISTRESS NOTED. TOLERATING VENT SETTINGS WELL. TELE PRESENTS WITH SR 80S O2 SAT WNL. IV SITES INTACT, PT NGT FLUSHED AUSC AND PATENT. RUNNING FEEDING AT 40CC/HR ORDERED, NOTED PRATHER CATHETER WITH YELLOW URINE DRAINING VIA GRAVITY, BED LOCKED IN LOWEST POSITION WITH SIDE RAILS UP X2, HOB ELEVATED. WILL CONT TO MONITOR CLOSELY.
[2021-12-03] MEDS: MIRTAZAPINE 15 MG TABLET NG SCH (21:04)
[2021-12-03] MEDS: ATORVASTATIN 40 MG TABLET NG SCH (21:04)
[2021-12-04] VITALS (25 sets, daily range): BP systolic 129–175; BP diastolic 87–118
[2021-12-04] MEDS: INSULIN REGULAR, HUMAN 100 UNIT/ML 3 ML VIAL SQ PRN ×4 (00:12→17:23)
[2021-12-04] MEDS: BLOOD SUGAR DIAGNOSTIC 1 EACH STRIP IN SCH ×4 (00:12→17:23)
[2021-12-04] MEDS: PIPERACILLIN /TAZOBACTAM 3.375 G in IV D5W 100 ML IV SCH ×3 (01:10→17:38)
[2021-12-04] MEDS: VANCOMYCIN HCL 0.75 GM in IV D5W 250 ML IV SCH (06:00)
--- NOTE | 2021-12-04 06:22 | NUR ---
RN NOTE DESIRE CALLED LAB, RONAKO TROUGH NOT RESULTED YET. WILL WAIT UNTIL RESULT IS BACK TO ADMIN
--- NOTE | 2021-12-04 06:55 | NUR ---
RN CLOSING NOTE ICU NO SIGNIFICANT CHANGE IN PT CONDITION. RESTED WELL THROUGHOUT NIGHT. PERIODS OF ALERTNESS. NO DISTRESS NO FEVER. PT STILL REMAINS WITH GT RUNNING ORDERED. SAFETY MEASURES IN PLACE. VANCO TROUGH RESULT STILL NOT BACK YET, WILL ENDORSE TO DAY SHIFT RN. Addendum: 12/04/21 at 0711 by NESTOR BEGUM RN MAYTE CARE ORAL CARE LINEN CHANGE DONE TURN REPOSITION DONE TOLERATED. HYGIENE BED BATH DONE. SKIN CIRCULATION MONITORED PER HOSPITAL POLICY.
[2021-12-04 08:35] LABS: ABG BASE EXCESS 4.9 mmol/L; ABG OXYGEN SATURATION 96.2 % (92.0-98.5); ABG PCO2 39.7 mmHg (35.0-45.0); ABG PH 7.477 (7.350-7.450); ABG PO2 80.2 mmHg (75.0-100.0); AaDO2 87.1 mmHg; COHb 0.1 % (0.5-1.5); MetHb 0.2 % (0.0-1.5); O2Hb 95.9 % (94.0-97.0); SITE, ABG Right Radial
[2021-12-04] MEDS: LEVETIRACETAM SOL (5 ML) 100 MG/ML UDC GT SCH ×2 (08:38→21:19)
[2021-12-04] MEDS: CHOLECALCIFEROL 1,000 UNIT TABLET (VIT D3) NG SCH (08:38)
[2021-12-04 09:57] LABS: CALCIUM, SERUM 8.1 mg/dL (8.5-10.1); POTASSIUM 3.7 mmol/L (3.5-5.1)
[2021-12-04 09:58] LABS: CREATININE 1.2 mg/dL (0.6-1.3)
[2021-12-04] MEDS: GLUCERNA 1.2 1,000 ML BOTTLE NG SCH (16:48)
--- NOTE | 2021-12-04 18:56 | NUR ---
RN NOTE PLAN OF CARE RENDERED, SAFETY MEASURES OBSERVED, CALL LIGHT WITHIN REACH, WILL ENDORSE TO NOC SHIFT.
[2021-12-04] MEDS: ATORVASTATIN 40 MG TABLET NG SCH (21:18)
[2021-12-04] MEDS: MIRTAZAPINE 15 MG TABLET NG SCH (21:18)
[2021-12-05] VITALS (24 sets, daily range): BP systolic 99–144; BP diastolic 71–96
[2021-12-05] MEDS: INSULIN REGULAR, HUMAN 100 UNIT/ML 3 ML VIAL SQ PRN ×2 (00:10→05:40)
[2021-12-05] MEDS: BLOOD SUGAR DIAGNOSTIC 1 EACH STRIP IN SCH ×4 (00:10→17:59)
[2021-12-05] MEDS: PIPERACILLIN /TAZOBACTAM 3.375 G in IV D5W 100 ML IV SCH ×3 (01:56→18:01)
[2021-12-05 05:46] LABS: CALCIUM, SERUM 8.2 mg/dL (8.5-10.1); CREATININE 1.1 mg/dL (0.6-1.3); POTASSIUM 3.6 mmol/L (3.5-5.1)
--- NOTE | 2021-12-05 08:25 | NUR ---
RN NOTE GAVE UPDATE TO DAUGHTER IN LAW, OLVIN. ASKED TO HAVE MD CALL SHIRLEYJL PT SON EXPLANATION OF RESULT OF BIOPSY FROM ABD MASS.
[2021-12-05] MEDS: CHOLECALCIFEROL 1,000 UNIT TABLET (VIT D3) NG SCH (09:23)
--- NOTE | 2021-12-05 09:51 | NUR ---
RN NOTE NOTIFIED HOSPITALISTMISHA ABOUT SON WANTING UPDATE Addendum: 12/05/21 at 1019 by NESTOR BEGUM RN F/U WITH DR CABRAL ABOUT BIOPSY, RESULTS NOT SPECIFIC ENOUGH TO UPDATE, WILL WAIT FOR CONSULTATION DISCUSS WITH ONCOLOGY
--- NOTE | 2021-12-05 10:17 | NUR ---
RN NOTE RX KEPPRA NOTIFIED PHARMACY X3 REGARDING KEPPRA NOT IN STOCK, WILL BE LATE SAID TECH IS BRINGING IT UP NOW
[2021-12-05] MEDS: LEVETIRACETAM SOL (5 ML) 100 MG/ML UDC GT SCH ×2 (10:33→18:01)
--- NOTE | 2021-12-05 10:39 | NUR ---
RN NOTE ADMINISTERED MEDICATION KEPPRA, ALL NEEDS ATTENDED. SAFETY MEASURES IN PLACE. CONT OF CARE ENDORSED TO CORRINE
--- NOTE | 2021-12-05 12:00 | NUR ---
RM ICU SUCTIONED. REPOSITIONED.
--- NOTE | 2021-12-05 18:00 | NUR ---
BILLET SHEARER PT AWAKENS WITH STIMULATION. DOES NOT FOLLOW COMMANDS. MOVES LEFT ARM, RIGHT ARM FLACCID. ABLE TO ASSIST VENT WITH STABLE SPO2. TOLERATING TF WELL. H20 FLUSHES STARTED ORDERED. HAD LARGE AMOUNT SOFT STOOL, CLEANED, LINENS CHANGED. SUCTIONED COPIOUS AMOUNT THICK WHITE SECRETIONS FROM ETT.
--- NOTE | 2021-12-05 20:00 | NUR ---
ICU NOTES Received patient open eyes but not following commands.DX: Subdural Hemorrhage.Intubated and continue current vent settings. Well tolerated saturation 100%.VS stable.SR.Tube feeding via R NGT infusing.Placement verified.HOB elevated.No distress noted.FC to gravity.Turned and repositioned.
[2021-12-05] MEDS: GLUCERNA 1.2 1,000 ML BOTTLE NG SCH (20:39)
[2021-12-05] MEDS: ATORVASTATIN 40 MG TABLET NG SCH (21:38)
[2021-12-05] MEDS: MIRTAZAPINE 15 MG TABLET NG SCH (21:38)
[2021-12-06] VITALS (24 sets, daily range): BP systolic 107–147; BP diastolic 60–94
--- NOTE | 2021-12-06 | NUR ---
ICI NOTES Blood sugar monitored. WNL.Tolerating tube feeding.VS remains stable.Secretions suctioned. Turned and repositioned.
[2021-12-06] MEDS: BLOOD SUGAR DIAGNOSTIC 1 EACH STRIP IN SCH ×4 (00:11→17:41)
[2021-12-06] MEDS: PIPERACILLIN /TAZOBACTAM 3.375 G in IV D5W 100 ML IV SCH ×2 (02:03→10:20)
[2021-12-06 05:12] LABS: CREATININE 1.2 mg/dL (0.6-1.3); POTASSIUM 3.8 mmol/L (3.5-5.1)
--- NOTE | 2021-12-06 06:30 | NUR ---
ICU END NOTES. Patient resting in no acute distress.More awake tonight and follows simple commands.Easily get agitated with activity.VS remains stable.SR.Tolerating vent settings.Suctioned moderate amount thick brown secretions.Oral care done.AM care done.Turned and repositioned to comfort.All due medications administered.Will endorse to day shift for SID.
--- NOTE | 2021-12-06 07:30 | NUR ---
RN NOTES Received patient Sleep in bed.DX: Subdural Hemorrhage.Intubated and continue current vent settings. Well tolerated saturation 100%.VS stable.SR.Tube feeding via R NGT infusing AT 40 ML/HR.Placement verified.HOB elevated.No distress noted.FC to gravity.Turned and repositioned. Will lauren.
[2021-12-06] MEDS: LEVETIRACETAM SOL (5 ML) 100 MG/ML UDC GT SCH ×2 (07:42→17:16)
[2021-12-06] MEDS: CHOLECALCIFEROL 1,000 UNIT TABLET (VIT D3) NG SCH (08:10)
[2021-12-06] MEDS: MODAFINIL 100 MG TABLET NG SCH (08:10)
--- NOTE | 2021-12-06 19:11 | NUR ---
END NOTES. Patient remain resting in no acute distress. awake and follows simple commands.Easily get agitated with activity.VS remains stable.SR.Tolerating vent settings.Suctioned moderate amount thick secretions.Oral care done.Turned and repositioned to comfort.All due medications administered. son visited the pt and sign the consent for us needle guided biopsy. Will endorse to noc shift for SID.
--- NOTE | 2021-12-06 20:00 | NUR ---
ICU NOTES Received patient resting in no acute distress.Intubated to mechanical vent on same vent settings. SR per tele monitoring.VS stable. Tube feeding via NGT infusing Glucerna at 40 ml/hr.NGT placement verified.Residual 5 ml.Maintained HOB elevated.FC to gravity.Turned and repositioned.Continue monitoring.
[2021-12-06] MEDS: MIRTAZAPINE 15 MG TABLET NG SCH (21:32)
[2021-12-06] MEDS: ATORVASTATIN 40 MG TABLET NG SCH (21:32)
[2021-12-07] VITALS (32 sets, daily range): BP systolic 104–159; BP diastolic 76–98
[2021-12-07] MEDS: BLOOD SUGAR DIAGNOSTIC 1 EACH STRIP IN SCH ×5 (00:10→23:56)
[2021-12-07] MEDS: GLUCERNA 1.2 1,000 ML BOTTLE NG SCH (02:51)
[2021-12-07 06:01] LABS: CALCIUM, SERUM 8.2 mg/dL (8.5-10.1); CREATININE 1.1 mg/dL (0.6-1.3); POTASSIUM 3.4 mmol/L (3.5-5.1)
--- NOTE | 2021-12-07 07:09 | NUR ---
ICU END NOTES Patient resting in no acute distress.Patient more awake following commands.VS remains stable. Tolerating vent settings.Tolerating feeding.FSBS WNLSuctioned moderate secretions.Oral care and AM care done.All due medications administered.All needs met. .
--- NOTE | 2021-12-07 07:58 | NUR ---
RN MORNING NOTE PT OBSERVED IN BED WITH HOB SEMI FOWLERS. PT IS ON MECHANICAL VENT WITH ALL PRESCRIBED SETTINGS O2 SAT 100% TOLERATING WELL WITH NO SIGNS OF LABORED BREATHING OR DISTRESS AT THIS TIME. GTUBE IS IN PLACE WITH POSITIVE PLACEMENT. PRATHER CATHETER IS IN PLACE DRAINING URINE BY GRAVITY. IV ACCESS L UA MIDLINE 18G AND L AC 18G. BED IS LOCKED IN LOWEST POSITION X3 GUARD RAILS UP AND ALL HOSPITAL SAFETY MEASURES ARE IN PLACE. WILL CONTINUE TO MONITOR THIS SHIFT.
[2021-12-07] MEDS: LEVETIRACETAM SOL (5 ML) 100 MG/ML UDC GT SCH ×2 (08:08→18:27)
[2021-12-07] MEDS: MODAFINIL 100 MG TABLET NG SCH (08:08)
[2021-12-07] MEDS: CHOLECALCIFEROL 1,000 UNIT TABLET (VIT D3) NG SCH (08:09)
[2021-12-07] MEDS ORDERED: POTASSIUM CHLORIDE 20 MEQ POWDER PACKET NG SCH (10:00)
--- NOTE | 2021-12-07 10:00 | NUR ---
RN NOTE US CALLED TO NOTIFY THAT US NEEDLE GUIDED BIOPSY OF THE THYROID NODULE WILL NOT BE DONE TODAY AND WILL BE DONE ON FRIDAY.
[2021-12-07] MEDS: INSULIN REGULAR, HUMAN 100 UNIT/ML 3 ML VIAL SQ PRN ×3 (12:56→23:57)
--- NOTE | 2021-12-07 12:56 | NUR ---
RN NOTE PT BS 119. PER SLIDING SCALE, NO ACTION NEEDED AT THIS TIME.
--- NOTE | 2021-12-07 18:55 | NUR ---
RN NOTE PT BS [id number]. PER SLIDING SCALE, NO COVERAGE NEEDED AT THIS TIME.
--- NOTE | 2021-12-07 19:01 | NUR ---
RN CLOSING NOTE PT IS IN BED WITH HOB SEMI FOWLERS. PT IS ON MECHANICAL VENT WITH ALL PRESCRIBED SETTINGS O2 SAT 100% TOLERATING WELL WITH NO SIGNS OF LABORED BREATHING OR DISTRESS AT THIS TIME. GTUBE IS IN PLACE WITH POSITIVE PLACEMENT INFUSING WITH GLUCERNA @40ML/HR. PT HAD CT OF HEAD W/O CONTRAST THIS AFTERNOON. PRATHER CATHETER IS IN PLACE DRAINING URINE BY GRAVITY. IV ACCESS L UA MIDLINE 18G AND L AC 18G. BED IS LOCKED IN LOWEST POSITION X3 GUARD RAILS UP AND ALL HOSPITAL SAFETY MEASURES ARE IN PLACE. ALL MEDS GIVEN AND ALL NEEDS MET. WILL ENDORSE TO RESTAURANT CASHIER NURSE FOR SID.
--- NOTE | 2021-12-07 19:35 | NUR ---
SENIOR PYTHON DEVELOPER OPENING NOTES RECEIVED PT FOR CONTINUITY OF CARE. PATIENT A/OX0 IN NO S/SX OF ACUTE DISTRESS AT THIS TIME; CURRENTLY ON MECHANICAL VENT; SETTING PRESCRIBED, WITH 02 SAT >95% AT THIS TIME. WITH GTUBE FEEDING RUNNING PRESCRIBED. WILL ENSURE SAFETY MEASURES WITHIN THE SHIFT. PATIENT BED ALARM IS ON. HEAD OF BED ELEVATED. BED IS LOCKED, IN LOWEST POSITION AND SIDE RAILS UP. CALL LIGHT WITHIN REACH OF THE PATIENT. APPLICABLE ISOLATION PRECAUTIONS IN PLACE. WILL CONTINUE TO MONITOR AND REASSESS FOR ANY CHANGES AND WILL CARRY OUT ANY ONGOING AND ACTIVE MD ORDER.
[2021-12-07] MEDS: ATORVASTATIN 40 MG TABLET NG SCH (21:55)
[2021-12-07] MEDS: MIRTAZAPINE 15 MG TABLET NG SCH (21:55)
[2021-12-08] VITALS (31 sets, daily range): BP systolic 106–148; BP diastolic 72–102
[2021-12-08] MEDS: INSULIN REGULAR, HUMAN 100 UNIT/ML 3 ML VIAL SQ PRN (05:36)
[2021-12-08] MEDS: BLOOD SUGAR DIAGNOSTIC 1 EACH STRIP IN SCH ×4 (05:36→23:51)
[2021-12-08 05:40] LABS: CALCIUM, SERUM 7.8 mg/dL (8.5-10.1); POTASSIUM 3.5 mmol/L (3.5-5.1)
--- NOTE | 2021-12-08 06:30 | NUR ---
AUTOMATIC TIRE TESTER CLOSING NOTE: PATIENT REMAINS IN ROOM IN NO SIGNS OF RESPIRATORY DISTRESS, PATIENT STILL ON MECH VENT; SETTINGS PRESCRIBED;TOLERATING WELL SATURATING @ >95% SP02. SAFETY MEASURES IMPLEMENTED, BED IN LOWEST POSITION, LOCKED, SIDE RAILS UP, CALL LIGHT WITHIN REACH. ALL NEEDS AND ORDERS ADDRESSED DURING THE SHIFT. IV ACCESS MAINTAINED INTACT, SECURED AND FLUSHING WELL. ALL DUE MEDS GIVEN ORDERED & SCHEDULED ; PATIENT TOLERATED WELL. PATIENT KEPT CLEAN AND COMFORTABLE WITHIN THE SHIFT. PATIENT ENDORSED TO INCOMING SHIFT RN WITH STABLE VITAL SIGN AND FOR CONTINUITY OF CARE.
--- NOTE | 2021-12-08 07:30 | NUR ---
RN OPENING NOTE RECEIVE REPORT FROM SHANK STAPLER NURSE. PATIENT IN STABLE CONDITION AND REMAIN ON VENTILATOR. SETTING OF; AC 16, TV 500, FIO2 30%, PEEP 5. TELEMETRY SHOWS SINUS RHYTHM. CURRENTLY RECEIVING TUBE FEEDING WITH GLUCERNA 1.2 AT 40ML/HR. THE GOAL IS TO GIVE 45ML/HR. WILL FOLLOW UP MORNING LAB AND DOCTOR ORDERS. PROPER ISOLATION IN PLACE. ALL SAFETY MEASURE IN PLACE. BED ON LOWEST POSITION WITH HOB ELEVATED FOR ASPIRATION PRECAUTION. CALL LIGHT WITHIN REACH. WILL CONTINUE TO MONITOR.
[2021-12-08] MEDS: MODAFINIL 100 MG TABLET NG SCH (08:05)
[2021-12-08] MEDS: CHOLECALCIFEROL 1,000 UNIT TABLET (VIT D3) NG SCH (08:05)
[2021-12-08] MEDS: LEVETIRACETAM SOL (5 ML) 100 MG/ML UDC GT SCH ×2 (08:06→21:25)
[2021-12-08] MEDS: GLUCERNA 1.2 1,000 ML BOTTLE NG SCH (11:39)
--- NOTE | 2021-12-08 18:50 | NUR ---
NURSE CLOSING NOTE PATIENT BEEN IN STABLE CONDITION WITH NO SIGN OF DISTRESS. REMAIN ON TUBE FEEDING WITH GLUCERNA 1.2 AT 45ML/HR. WITH RESIDUAL OF 10ML. 200ML OF FREE WATER FLUSH WAS GIVEN Q6H. TUBE FEEDING WAS PREVIOUSLY RUNNING AT 40ML/HR. REMAIN ON VENTILATOR WITH SETTINGS: AC 16, TV 500, FIO2 30%, PEEP 5. PATIENT WAS CLEAN, CHANGED, AND TURNED PER PROTOCOL. PROPER ISOLATION IN PLACE. ALL SAFETY MEASURE IN PLACE. BED ON LOWEST POSITION WITH HOB ELEVATED AND 3 SIDE RAIL UP. CALL LIGHT WITHIN REACH. WILL CONTINUE TO MONITOR AND ENDORSE TO ON COMING NURSE.
--- NOTE | 2021-12-08 19:10 | NUR ---
RN NOTES RECEIVED REPORT FROM MORNING RN. PATIENT IN BED RESPONDS IN VERBAL STIMULI. WITH ENDOTRACHEAL TUBE INTACT CONNECTED TO MV WITH PRESCRIBED SETTINGS TOLERATING WELL SATING 97%. WITH NGT TUBE PATENT CONNECTED TO CONTINOUS FEEDING TOLERATING WELL NO GASTRIC RESIDUAL NOTED. WITH PRATHER CATHETER CONNECTED TO URINE BAG PATENT DRAINING YELLOWISH URINE. WITH L AC # 18, KHUSHI MIDLINE PATENT FLUSHES WELL ON SALINE LOCK. VITAL SIGNS TAKEN AND RECORDED. ALL SAFETY MEASURES IN PLACE AT ALL TIMES. HOB ELEVATED. WILL CLOSELY MONITOR THE PATIENT.
[2021-12-08] MEDS: ACETAMINOPHEN 650 MG/20.3 ML UDC NG PRN (19:46)
[2021-12-08] MEDS: MIRTAZAPINE 15 MG TABLET NG SCH (21:25)
[2021-12-08] MEDS: ATORVASTATIN 40 MG TABLET NG SCH (21:25)
--- NOTE | 2021-12-08 23:51 | NUR ---
RN NOTES BS 112MG/DL NO COVERAGE. WILL CONTINUE TO MONITOR THE PATIENT
[2021-12-09] VITALS (29 sets, daily range): BP systolic 96–171; BP diastolic 63–127
[2021-12-09] MEDS: BLOOD SUGAR DIAGNOSTIC 1 EACH STRIP IN SCH ×4 (05:28→23:48)
--- NOTE | 2021-12-09 05:32 | NUR ---
RN NOTES BS 106MG/DL NO COVERAGE. WILL CONTINUE TO MONITOR THE PATIENT
--- NOTE | 2021-12-09 06:52 | NUR ---
RN NOTES PATIENT IN BED NO SIGNIFICANT CHANGES NOT ON RESPIRATORY DISTRESS. STILL ON BILATERAL SOFT RESTRAINTS. WITH NGT PATENT CONNECTED TO CONTINUOS FEEDING GLUCERNA 1.2 @ 45CC/HR TOLERATING WELL NO GASTRIC RESIDUAL. WITH L UA MIDLINE PATENT FLUSHES WELL. ALL DUE MEDS GIVEN ORDERED. PRATHER PATENT CONNECTED TO URINE BAG DRAINING 750 CC. TURN AND REPOSITION PATIENT EVERY 2 HOURS. ALL NEEDS ATTENDED. ENDORSED TO MORNING NURSE FOR SID
--- NOTE | 2021-12-09 07:01 | NUR ---
RN OPENING NOTE RECEIVE REPORT FROM INFORMATION TECHNOLOGY ACCOUNT MANAGER NURSE. PATIENT IN STABLE CONDITION AND REMAIN ON VENTILATOR. SETTING OF; AC 16, TV 500, FIO2 30%, PEEP 5. TELEMETRY SHOWS SINUS RHYTHM. CURRENTLY RECEIVING TUBE FEEDING WITH GLUCERNA 1.2 AT 45ML/HR. WILL FOLLOW UP MORNING LAB AND DOCTOR ORDERS. PROPER ISOLATION IN PLACE. ALL SAFETY MEASURE IN PLACE. BED ON LOWEST POSITION WITH HOB ELEVATED FOR ASPIRATION PRECAUTION. CALL LIGHT WITHIN REACH. WILL CONTINUE TO MONITOR.
--- NOTE | 2021-12-09 07:53 | NUR ---
RT PATIENT REC'D ORALLY INTUBATED ON [facility] VENT WITH ORDERED SETTINGS. VENT ALARMS CHECKED + AUDIBLE. AIRWAY CHECKED + SECURE. AMBU BAG AT HOB. Addendum: 12/09/21 at 1621 by TOLU FOSTER RT Amended: Links added.
[2021-12-09] MEDS: CHOLECALCIFEROL 1,000 UNIT TABLET (VIT D3) NG SCH (08:19)
[2021-12-09] MEDS: MODAFINIL 100 MG TABLET NG SCH (08:20)
[2021-12-09] MEDS: LEVETIRACETAM SOL (5 ML) 100 MG/ML UDC GT SCH ×2 (08:21→21:10)
[2021-12-09 09:14] LABS: ABG BASE EXCESS 4.3 mmol/L; ABG OXYGEN SATURATION 94.5 % (92.0-98.5); ABG PCO2 33.8 mmHg (35.0-45.0); ABG PH 7.521 (7.350-7.450); ABG PO2 70.7 mmHg (75.0-100.0); AaDO2 103.5 mmHg; O2Hb 94.5 % (94.0-97.0); SITE, ABG Right Radial; VENT MODE, BG AC 16 500 30% +5
[2021-12-09 09:53] LABS: ABG BASE EXCESS -0.5 mmol/L; ABG OXYGEN SATURATION 93.3 % (92.0-98.5); ABG PCO2 30.2 mmHg (35.0-45.0); ABG PH 7.483 (7.350-7.450); ABG PO2 69.5 mmHg (75.0-100.0); AaDO2 108.9 mmHg; COHb 0.3 % (0.5-1.5); SITE, ABG Left Radial
--- NOTE | 2021-12-09 09:55 | NUR ---
RT PER DR JOHN PATIENT PLACED ON CPAP TRIAL. PATIENT BECAME DISTRESSED AND RR INCREASED, SPO2 DROPPED, HR INCREASED. PATIENT PLACED BACK ON AC MODE. Addendum: 12/09/21 at 1115 by TOLU FOSTER RT Amended: Links added.
[2021-12-09] MEDS: GLUCERNA 1.2 1,000 ML BOTTLE NG SCH (16:51)
--- NOTE | 2021-12-09 18:21 | NUR ---
RN CLOSING NOTE PATIENT BEEN IN STABLE CONDITION WITH NO SIGN OF DISTRESS THROUGH OUT SHIFT. VENT SETTINGS: AC16, TV500, FIO2 30%, PEEP 5. TUBE FEEDING HAVE BEEN DECREASE FROM 45ML/HR TO 40ML/HR. PATIENT HAD CPAP TRIAL PER DR. JOHN. PATIENT UNABLE TO TOLERATE CPAP. DURING CPAP PATIENT BECAME DISTRESSED WITH ELEVATED RESPIRATORY RATE, ELEVATED HEAR RATE, AND DECREASE SPO2. RT PUT PATIENT BACK ON AC MODE @1050. PATIENT WAS CLEANED, TURN AND REPOSITION PER PROTOCOL. PROPER ISOLATION IN PLACE. ALL SAFETY MEASURE IN PLACE. BED ON LOWEST POSITION WITH HOB ELEVATED WITH 3 SIDE RAIL UP. CALL LIGHT WITHIN REACH. WILL CONTINUE TO MONITOR AND ENDORSE TO ON COMING NURSE.
--- NOTE | 2021-12-09 19:35 | NUR ---
RN NOTE PT RECEIVED IN BED. PT ON VENT WITH SETTINGS AT: AC:16, TV:500, FIO2: 30%, PEEP 5. PT IS ON WHITESMITH SHOWING NSR. PRATHER CATH NOTED. BILATERAL SOFT WRIST RESTRAINTS NOTED. GLUCERNA 1.2 RUNNING AT 45 CC/HR. PT TOLERATING WELL. LEFT UPPER ARM MIDLINE NOTED. LINE FLUSHED, PATENT, AND INTACT WITH NO SIGNS OF INFILTRATION. ALL SAFETY MEASURES IMPLEMENTED. WILL CONTINUE TO MONITOR AND ASSESS FOR ANY CHANGES DURING SHIFT.
[2021-12-09] MEDS: MIRTAZAPINE 15 MG TABLET NG SCH (21:09)
[2021-12-09] MEDS: ATORVASTATIN 40 MG TABLET NG SCH (21:10)
[2021-12-10] VITALS (39 sets, daily range): BP systolic 113–138; BP diastolic 76–100
--- NOTE | 2021-12-10 03:30 | NUR ---
RN NOTE TRIED REACHING OUT TO ONCALL DR. CASTANEDA REGARDING BLOOD IN PATIENT'S URINE VIA PRATHER CATH. NO RESPONSE YET. WILL CONTINUE TO F/U.
[2021-12-10 05:08] LABS: CALCIUM, SERUM 8.4 mg/dL (8.5-10.1); CREATININE 1.1 mg/dL (0.6-1.3)
[2021-12-10 05:18] LABS: BASOPHILS # (AUTO) 0.1 K/uL (0.0-0.2); BASOPHILS % (AUTO) 0.7 % (0.0-2.0); EOSINOPHILS % (AUTO) 0.8 % (0.0-6.0); HEMATOCRIT 34 % (39-51); HEMOGLOBIN 11.1 g/dL (13.5-17.5); LYMPHOCYTES # (AUTO) 1.2 K/uL (0.8-4.8); LYMPHOCYTES % (AUTO) 14.1 % (20.0-44.0); MEAN CORPUSCULAR HGB CONC 33 g/dl (31.0-36.0); MEAN CORPUSCULAR VOLUME 86 fL (80-96); MONOCYTES # (AUTO) 0.6 K/uL (0.1-1.30); MONOCYTES % (AUTO) 6.4 % (2.0-12.0); NEUTROPHILS # (AUTO) 6.8 K/uL (1.8-8.9); PLATELET COUNT (AUTO) 351 K/uL (150-450); RED BLOOD CELL COUNT(AUTO) 3.95 MIL/uL (4.5-6.0); WHITE BLOOD COUNT (AUTO) 8.7 K/uL (4.3-11.0)
[2021-12-10] MEDS: BLOOD SUGAR DIAGNOSTIC 1 EACH STRIP IN SCH ×4 (06:04→23:43)
--- NOTE | 2021-12-10 06:41 | NUR ---
RN NOTE NO SIGNIFICANT CHANGES IN PT CONDITION DURING SHIFT. PT ON VENT WITH SETTINGS AT: AC:16, TV:500, FIO2: 30%, PEEP 5. PT IS ON COATER HELPER SHOWING NSR. GLUCERNA 1.2 RUNNING AT 45 CC/HR. PT TOLERATING WELL. LEFT UPPER ARM MIDLINE NOTED. LINE FLUSHED, PATENT, AND INTACT WITH NO SIGNS OF INFILTRATION. ALL DUE MEDS GIVEN ORDERED. PT KEPT CLEAN AND COMFORTABLE. ALL SAFETY MEASURES IMPLEMENTED. WILL ENDORSE TO MORNING SHIFT RN FOR SID.
--- NOTE | 2021-12-10 07:20 | NUR ---
RN MORNING NOTE PT OBSERVED IN BED WITH HOB SEMI FOWLERS. PT IS ON MECHANICAL VENT WITH ALL PRESCRIBED SETTINGS O2 SAT 99% TOLERATING WELL WITH NO SIGNS OF LABORED BREATHING OR DISTRESS AT THIS TIME. GTUBE IS IN PLACE WITH POSITIVE PLACEMENT WITH GLUCERNA 1.2 @45ML/HR. PRATHER CATHETER IS IN PLACE DRAINING URINE BY GRAVITY. IV ACCESS L UA MIDLINE 18G AND L AC 18G. PT IS SCHEDULED FOR US GUIDED NEEDLE BIOPSY OF THE THYROID. BED IS LOCKED IN LOWEST POSITION X3 GUARD RAILS UP AND ALL HOSPITAL SAFETY MEASURES ARE IN PLACE. WILL CONTINUE TO MONITOR THIS SHIFT.
[2021-12-10] MEDS: CHOLECALCIFEROL 1,000 UNIT TABLET (VIT D3) NG SCH (08:58)
[2021-12-10] MEDS: MODAFINIL 100 MG TABLET NG SCH (08:58)
[2021-12-10] MEDS: LEVETIRACETAM SOL (5 ML) 100 MG/ML UDC GT SCH ×2 (08:58→21:00)
[2021-12-10] MEDS: INSULIN REGULAR, HUMAN 100 UNIT/ML 3 ML VIAL SQ PRN (12:45)
--- NOTE | 2021-12-10 12:45 | NUR ---
RN NOTE PT BS 116. PER SLIDING SCALE, NO COVERAGE NEEDED AT THIS TIME.
[2021-12-10] MEDS: GLUCERNA 1.2 1,000 ML BOTTLE NG SCH (17:56)
--- NOTE | 2021-12-10 18:58 | NUR ---
RN CLOSING NOTE PT IS IN BED WITH HOB SEMI FOWLERS. PT IS ON MECHANICAL VENT WITH ALL PRESCRIBED SETTINGS O2 SAT 99% TOLERATING WELL WITH NO SIGNS OF LABORED BREATHING OR DISTRESS AT THIS TIME. GTUBE IS IN PLACE WITH POSITIVE PLACEMENT WITH GLUCERNA 1.2 @45ML/HR WITH >20ML RESIDUAL. PRATHER CATHETER IS IN PLACE DRAINING URINE BY GRAVITY. IV ACCESS L UA MIDLINE 18G. PT HAD US GUIDED NEEDLE BIOPSY OF THE THYROID TODAY. BED IS LOCKED IN LOWEST POSITION X3 GUARD RAILS UP AND ALL HOSPITAL SAFETY MEASURES ARE IN PLACE, ALL MEDS GIVEN AND NEEDS MET. WILL ENDORSE TO AV SPECIALIST NURSE FOR SID.
--- NOTE | 2021-12-10 20:00 | NUR ---
RN/ICU-RECEIVED PT. AWAKE, ALERT, COMORAN SPEAKING, NODS APPROPRIATELY TO CERTAIN QUESTIONS.FOLLOWS SIMPLE COMMANDS.RIGHT UPPER EXTREMITY/LOWER EXTREMITY SEVERE WEAKNESS. LEFT UPPER AND LOWER EXTREMITY WNL. WITH DEJON. SOFT WRIST RESTRAINTS ON.PT. EASILY GETS AGITATED TO STIMULATION. ON THE VENT PER ETT, ON AC MODE, SATS.>95%, PT. WITH MODERATE TO LARGE AMOUNT OF THICK, CREAMY SECRETIONS. ON TUBE FEEDS. MARY ELLEN WELL. HOB AT 60 DEGREES AT ALL TIMES. AFEBRILE. PT. IS A FULL CODE.
[2021-12-10] MEDS: ATORVASTATIN 40 MG TABLET NG SCH (21:00)
[2021-12-10] MEDS: MIRTAZAPINE 15 MG TABLET NG SCH (21:00)
[2021-12-11] VITALS (27 sets, daily range): BP systolic 87–127; BP diastolic 64–88
[2021-12-11] MEDS: BLOOD SUGAR DIAGNOSTIC 1 EACH STRIP IN SCH ×4 (05:59→23:25)
--- NOTE | 2021-12-11 07:30 | NUR ---
RN MORNING NOTE PT RECEIVED IN BED SLEEPING WITH HOB SEMI FOWLERS AND STABLE AT THIS TIME. PT IS ON MECHANICAL VENT WITH ALL PRESCRIBED SETTINGS O2 SAT 100% TOLERATING WELL WITH NO SIGNS OF LABORED BREATHING OR DISTRESS AT THIS TIME. GTUBE IS IN PLACE WITH POSITIVE PLACEMENT WITH GLUCERNA 1.2 @45ML/HR >20 ML RESIDUAL. PRATHER CATHETER IS IN PLACE DRAINING URINE BY GRAVITY. IV ACCESS L UA MIDLINE 18G PATENT AND FLUSHING WELL. PT IS S/P 12/10/21 US GUIDED NEEDLE BIOPSY OF/ THE THYROID. BED IS LOCKED IN LOWEST POSITION X3 GUARD RAILS UP AND ALL HOSPITAL SAFETY MEASURES ARE IN PLACE. WILL CONTINUE TO MONITOR THIS SHIFT.
[2021-12-11 08:35] LABS: ABG BASE EXCESS 3.5 mmol/L; ABG OXYGEN SATURATION 96.6 % (92.0-98.5); ABG PH 7.474 (7.350-7.450); ABG PO2 90.3 mmHg (75.0-100.0); COHb 0.3 % (0.5-1.5); MetHb 0.3 % (0.0-1.5); SITE, ABG Right Radial
[2021-12-11] MEDS: LEVETIRACETAM SOL (5 ML) 100 MG/ML UDC GT SCH ×2 (09:21→20:34)
[2021-12-11] MEDS: MODAFINIL 100 MG TABLET NG SCH (09:21)
[2021-12-11] MEDS: CHOLECALCIFEROL 1,000 UNIT TABLET (VIT D3) NG SCH (09:21)
[2021-12-11] MEDS: INSULIN REGULAR, HUMAN 100 UNIT/ML 3 ML VIAL SQ PRN ×2 (11:34→18:47)
--- NOTE | 2021-12-11 11:34 | NUR ---
RN NOTE PT BS 108. PER NPO SLIDING SCALE, NO COVERAGE NEEDED AT THIS TIME.
--- NOTE | 2021-12-11 18:47 | NUR ---
RN NOTE PT BS 108. PER NPO SLIDING SCALE, NO COVERAGE NEEDED AT THIS TIME.
[2021-12-11] MEDS: GLUCERNA 1.2 1,000 ML BOTTLE NG SCH (19:48)
[2021-12-11] MEDS: ATORVASTATIN 40 MG TABLET NG SCH (21:35)
[2021-12-11] MEDS: MIRTAZAPINE 15 MG TABLET NG SCH (21:36)
[2021-12-12] VITALS (24 sets, daily range): BP systolic 98–183; BP diastolic 58–109
[2021-12-12 05:45] LABS: CALCIUM, SERUM 8.3 mg/dL (8.5-10.1); CREATININE 1.1 mg/dL (0.6-1.3); MAGNESIUM 2.5 mg/dL (1.8-2.4); PHOSPHORUS 3.5 mg/dL (2.5-4.9)
[2021-12-12 05:58] LABS: BASOPHILS # (AUTO) 0.1 K/uL (0.0-0.2); BASOPHILS % (AUTO) 0.7 % (0.0-2.0); EOSINOPHILS % (AUTO) 1.8 % (0.0-6.0); HEMATOCRIT 30 % (39-51); HEMOGLOBIN 9.8 g/dL (13.5-17.5); LYMPHOCYTES # (AUTO) 1.7 K/uL (0.8-4.8); LYMPHOCYTES % (AUTO) 22.1 % (20.0-44.0); MEAN CORPUSCULAR HGB CONC 33 g/dl (31.0-36.0); MEAN CORPUSCULAR VOLUME 86 fL (80-96); MONOCYTES # (AUTO) 0.6 K/uL (0.1-1.30); MONOCYTES % (AUTO) 7.6 % (2.0-12.0); NEUTROPHILS # (AUTO) 5.1 K/uL (1.8-8.9); NEUTROPHILS % (AUTO) 67.8 % (43.0-81.0); PLATELET COUNT (AUTO) 306 K/uL (150-450); RED BLOOD CELL COUNT(AUTO) 3.46 MIL/uL (4.5-6.0); WHITE BLOOD COUNT (AUTO) 7.5 K/uL (4.3-11.0)
[2021-12-12] MEDS: BLOOD SUGAR DIAGNOSTIC 1 EACH STRIP IN SCH ×4 (06:01→23:54)
--- NOTE | 2021-12-12 07:25 | NUR ---
RN OPENING NOTE RECEIVE REPORT FROM MOLECULAR MODELER NURSE. PATIENT ON VENTILATOR WITH O2 SAT OF 97% AND ABOVE. WILL FOLLOW UP AM LAB AND DOCTOR ORDERS. PROPER ISOLATION PRECAUTION IN PLACE. ALL SAFETY MEASURE IN PLACE. WILL CONTINUE TO MONITOR.
[2021-12-12] MEDS: LEVETIRACETAM SOL (5 ML) 100 MG/ML UDC GT SCH ×2 (08:57→21:27)
[2021-12-12] MEDS: MODAFINIL 100 MG TABLET NG SCH (08:57)
[2021-12-12] MEDS: CHOLECALCIFEROL 1,000 UNIT TABLET (VIT D3) NG SCH (08:57)
--- NOTE | 2021-12-12 12:30 | NUR ---
RT PATIENT REMAINS ORALLY INTUBATED ON MECH VENT, PER DR JOHN PATIENT PLACED ON CPAP WEANING MODE. MARY ELLEN WELL. PATIENT TO REMAIN ON CPAP TOLERATED. Addendum: 12/12/21 at 1748 by TOUL FOSTER RT Amended: Links added.
[2021-12-12] MEDS: GLUCERNA 1.2 1,000 ML BOTTLE NG SCH (16:36)
[2021-12-12] MEDS: INSULIN REGULAR, HUMAN 100 UNIT/ML 3 ML VIAL SQ PRN (18:30)
--- NOTE | 2021-12-12 18:49 | NUR ---
RN CLOSING NOTE PATIENT REMAIN IN STABLE CONDITION WITH NO SIGN OF DISTRESS THROUGH OUT SHIFT. REMAIN ON VENTILATOR. CURRENTLY ON CPAP TRIAL AND TOLERATING WELL. ALL MEDICATION WAS GIVEN DURING SHIFT. PATIENT WAS CLEANED, TURNED, AND REPOSITION PER PROTOCOL. PATIENT IS RESTING COMFORTABLY. WILL CONTINUE TO MONITOR AND ENDORSE TO ON COMING NURSE.
--- NOTE | 2021-12-12 20:17 | NUR ---
RN NOTE RECEIVED PATIENT IN BED, ET TUBE IN PLACE. OPENS EYES, ABLE TO NOD YES/NO TO QUESTIONS. BREATHING EVEN AND UNLABORED AT THIS TIME. ON VENT WITH SETTINGS OF AC:16, TV: 500, FIO2: 30%, PEEP: 5.0. TOLERATING WELL. HOB ELEVATED SEMI-WILL. SKIN WARM AND DRY. NOTED WITH LEFT UPPER ARM MIDLINE, NO IVF RUNNING. NO INFILTRATION. NOTED WITH BILATERAL SOFT WRIST RESTRAINTS. 2 FINGER SPACE OBSERVED. NOTED WITH PRATHER CATHETER. NO BLEEDING NOTED. DRAINING YELLOW URINE. BED LOW, IN LOCKED POSITION. CALL LIGHT WITHIN REACH.
--- NOTE | 2021-12-12 20:38 | NUR ---
PT INTUBATED ON VENT. 7.0 ETT SECURED AT 26CM AT THE LIP. SX'D LARGE AMT OF THICK SECRETIONS. VENT ALARMS SET AND AUDIBLE. AMBU BAG AT BEDSIDE. CONTINUE TO MONITOR. Addendum: 12/12/21 at 2038 by ELIZA LOPEZ RT Amended: Links added.
[2021-12-12] MEDS: MIRTAZAPINE 15 MG TABLET NG SCH (21:27)
[2021-12-12] MEDS: ATORVASTATIN 40 MG TABLET NG SCH (21:27)
[2021-12-13] VITALS (25 sets, daily range): BP systolic 95–149; BP diastolic 56–101
[2021-12-13 05:04] LABS: BASOPHILS # (AUTO) 0.1 K/uL (0.0-0.2); BASOPHILS % (AUTO) 0.7 % (0.0-2.0); EOSINOPHILS % (AUTO) 1.5 % (0.0-6.0); HEMATOCRIT 29 % (39-51); HEMOGLOBIN 9.6 g/dL (13.5-17.5); LYMPHOCYTES # (AUTO) 1.5 K/uL (0.8-4.8); LYMPHOCYTES % (AUTO) 19.8 % (20.0-44.0); MEAN CORPUSCULAR HGB CONC 33 g/dl (31.0-36.0); MEAN CORPUSCULAR VOLUME 86 fL (80-96); MONOCYTES # (AUTO) 0.7 K/uL (0.1-1.30); MONOCYTES % (AUTO) 8.6 % (2.0-12.0); NEUTROPHILS # (AUTO) 5.3 K/uL (1.8-8.9); NEUTROPHILS % (AUTO) 69.4 % (43.0-81.0); PLATELET COUNT (AUTO) 300 K/uL (150-450); RED BLOOD CELL COUNT(AUTO) 3.35 MIL/uL (4.5-6.0); WHITE BLOOD COUNT (AUTO) 7.6 K/uL (4.3-11.0)
[2021-12-13 05:09] LABS: CALCIUM, SERUM 8.3 mg/dL (8.5-10.1); MAGNESIUM 2.3 mg/dL (1.8-2.4); PHOSPHORUS 3.7 mg/dL (2.5-4.9); POTASSIUM 3.8 mmol/L (3.5-5.1)
[2021-12-13] MEDS: BLOOD SUGAR DIAGNOSTIC 1 EACH STRIP IN SCH ×4 (06:21→23:48)
[2021-12-13] MEDS: LEVETIRACETAM SOL (5 ML) 100 MG/ML UDC GT SCH ×2 (09:12→21:03)
[2021-12-13] MEDS: MODAFINIL 100 MG TABLET NG SCH (09:12)
[2021-12-13] MEDS: CHOLECALCIFEROL 1,000 UNIT TABLET (VIT D3) NG SCH (09:12)
--- NOTE | 2021-12-13 10:30 | NUR ---
pt extubated per md order. zero distress noted. pt able to clear airway b/s equal 3 lpm n/c
--- NOTE | 2021-12-13 10:30 | NUR ---
RN NOTE PT EXTUBATED AT 1030. TOLERATING CPAP WELL PER DR. VIGIL. RT EXTUBATED PT AND PLACED ON 3L OW. SAT 100%. WILL CONTINUE TO MONITOR PT
--- NOTE | 2021-12-13 19:15 | NUR ---
RN OPENING NOTES RECEIVED PATIENT ON BED, ALERT AND AWAKE, ON NASAL CANULA AT 3LPM, RESPIRATORY EVEN AND UNLABORED NO SOB NOTED, NOT IN DISTRESS. NOTED WITH KHUSHI MIDLINE, PATENT, INTACT ANF FLUSHED WITH NS. ON BILATERAL SOFT WRIST RESTRAINT. ALL SAFETY MEASURE PROVIDED, BED IN LOWEST POSITION, LOCKED AND BED ALARM ARMED. CONTINUE TO MONITOR.
--- NOTE | 2021-12-13 19:42 | NUR ---
RN CLOSING NOTE PT EXTUBATED TODAY AND TOLERATING 3L NC SAT > 95%. PRATHER OUTPUT 600CC. PT ON RESTRAINTS HE APPEARS TO TRY AND PULL ON PRATHER AND NG TUBE.
[2021-12-13] MEDS: MIRTAZAPINE 15 MG TABLET NG SCH (21:03)
[2021-12-13] MEDS: ATORVASTATIN 40 MG TABLET NG SCH (21:03)
[2021-12-14] VITALS (26 sets, daily range): BP systolic 122–149; BP diastolic 81–111
[2021-12-14 04:38] LABS: BASOPHILS % (AUTO) 0.5 % (0.0-2.0); EOSINOPHILS % (AUTO) 2.1 % (0.0-6.0); HEMATOCRIT 34 % (39-51); LYMPHOCYTES # (AUTO) 1.2 K/uL (0.8-4.8); LYMPHOCYTES % (AUTO) 17.5 % (20.0-44.0); MEAN CORPUSCULAR HGB CONC 33 g/dl (31.0-36.0); MEAN CORPUSCULAR VOLUME 86 fL (80-96); MONOCYTES # (AUTO) 0.5 K/uL (0.1-1.30); MONOCYTES % (AUTO) 7.5 % (2.0-12.0); NEUTROPHILS % (AUTO) 72.4 % (43.0-81.0); PLATELET COUNT (AUTO) 322 K/uL (150-450); RED BLOOD CELL COUNT(AUTO) 3.92 MIL/uL (4.5-6.0); WHITE BLOOD COUNT (AUTO) 6.9 K/uL (4.3-11.0)
[2021-12-14 05:01] LABS: CALCIUM, SERUM 8.5 mg/dL (8.5-10.1); MAGNESIUM 2.2 mg/dL (1.8-2.4); PHOSPHORUS 3.7 mg/dL (2.5-4.9); POTASSIUM 4.3 mmol/L (3.5-5.1)
[2021-12-14] MEDS: BLOOD SUGAR DIAGNOSTIC 1 EACH STRIP IN SCH ×3 (06:08→17:46)
--- NOTE | 2021-12-14 06:58 | NUR ---
RN CLOSING NOTES PATIENT REMAIN STABLE THROUGH OUT THE SHIFT, RESPIRATORY EVEN AND UNLABORED NO SOB NOTED, NOT IN DISTRESS. NOTED WITH KHUSHI MIDLINE, PATENT, INTACT ANF FLUSHED WITH NS. ON BILATERAL SOFT WRIST RESTRAINT. ALL DUE MEDS GIVEN ORDERED. ALL SAFETY MEASURE PROVIDED, BED IN LOWEST POSITION, LOCKED AND BED ALARM ARMED. CONTINUE TO MONITOR.
--- NOTE | 2021-12-14 07:05 | NUR ---
BUILDING MAINTENANCE ENGINEER Bedside report taken from [facility] nurse Andry PUTNAM. pt asleep, easily arousable, confused, moves bue and ble. pt on 3 L n/c tolerating well. spo2 96%. Pt has ngt getting glucerna 1.2 @ 40 ml /hr tolerating well, residuals 0ml. bowel sounds present. pt has aly, intact and draining clear yellow urine. pulses present in bue and ble. all lines traced vitals stable safety measures in place. will continue to monitor.
[2021-12-14] MEDS: LEVETIRACETAM SOL (5 ML) 100 MG/ML UDC GT SCH ×2 (08:00→21:58)
[2021-12-14] MEDS: CHOLECALCIFEROL 1,000 UNIT TABLET (VIT D3) NG SCH (08:00)
[2021-12-14] MEDS: MODAFINIL 100 MG TABLET NG SCH (08:00)
--- NOTE | 2021-12-14 08:28 | NUR ---
PATTERN PERFORATING MACHINE OPERATOR NGT clogged, new 18F ngt placed in Left nare. positive placement verified. pt tolerated well. will continue to monitor.
--- NOTE | 2021-12-14 10:00 | NUR ---
DOUGH MAKER Speech therapist at bedside to do swallow study. pt drowsy and lethargic, does not follow commands. pt failed swallow evaluation. charge nurse Miranda PUTNAM aware.
--- NOTE | 2021-12-14 17:48 | NUR ---
RUNNING RIGGER Pt bathed and cleaned. linen change done. skin check done, no new wounds noted. pt tolerated well vitals stable. will continue to monitor.
--- NOTE | 2021-12-14 19:00 | NUR ---
ONCOLOGY RN Bedside report given to [facility] nurse Aria PUTNAM. pt asleep, but arousable. Pt on 3 L n/c tolerating well. All lines traced. safety measures in place. pt clean and dry. no signs of acute distress at this time.
[2021-12-14] MEDS: ATORVASTATIN 40 MG TABLET NG SCH (21:58)
[2021-12-14] MEDS: ACETAMINOPHEN 650 MG/20.3 ML UDC NG PRN (21:58)
[2021-12-14] MEDS: MIRTAZAPINE 15 MG TABLET NG SCH (22:00)
[2021-12-14] MEDS: GLUCERNA 1.2 1,000 ML BOTTLE NG SCH (22:14)
--- NOTE | 2021-12-14 22:20 | NUR ---
ICU/MIDDLE OR INTERMEDIATE SCHOOL PRINCIPAL PT WAS GIVEN TYLENOL VIA G/TUBE FOR PAIN. PT'S FLACC SCALE IS 7/10. WILL CONTINUE TO MONITOR THIS PT AND HIS PAIN.
[2021-12-15] VITALS (31 sets, daily range): BP systolic 114–163; BP diastolic 76–111
[2021-12-15] MEDS: BLOOD SUGAR DIAGNOSTIC 1 EACH STRIP IN SCH ×5 (00:07→23:57)
--- NOTE | 2021-12-15 04:30 | NUR ---
ICU/VOCATIONAL AIDE PT WAS DEEP SUCTIONED. THICK SECRETIONS. WILL MONITOR THIS PT.
[2021-12-15 05:15] LABS: BASOPHILS # (AUTO) 0.1 K/uL (0.0-0.2); BASOPHILS % (AUTO) 1.3 % (0.0-2.0); EOSINOPHILS % (AUTO) 2.7 % (0.0-6.0); HEMATOCRIT 33 % (39-51); HEMOGLOBIN 10.7 g/dL (13.5-17.5); LYMPHOCYTES # (AUTO) 1.3 K/uL (0.8-4.8); LYMPHOCYTES % (AUTO) 17.8 % (20.0-44.0); MEAN CORPUSCULAR HGB CONC 33 g/dl (31.0-36.0); MEAN CORPUSCULAR VOLUME 86 fL (80-96); MONOCYTES # (AUTO) 0.5 K/uL (0.1-1.30); MONOCYTES % (AUTO) 6.2 % (2.0-12.0); NEUTROPHILS # (AUTO) 5.3 K/uL (1.8-8.9); PLATELET COUNT (AUTO) 313 K/uL (150-450); WHITE BLOOD COUNT (AUTO) 7.4 K/uL (4.3-11.0)
[2021-12-15 05:25] LABS: CALCIUM, SERUM 8.2 mg/dL (8.5-10.1); CREATININE 0.8 mg/dL (0.6-1.3); MAGNESIUM 2.1 mg/dL (1.8-2.4); PHOSPHORUS 3.4 mg/dL (2.5-4.9); POTASSIUM 3.8 mmol/L (3.5-5.1)
[2021-12-15] MEDS: CHOLECALCIFEROL 1,000 UNIT TABLET (VIT D3) NG SCH (09:42)
[2021-12-15] MEDS: MODAFINIL 100 MG TABLET NG SCH (09:42)
[2021-12-15] MEDS: LEVETIRACETAM SOL (5 ML) 100 MG/ML UDC GT SCH ×2 (09:42→21:29)
[2021-12-15] MEDS: ATORVASTATIN 40 MG TABLET NG SCH (21:29)
[2021-12-15] MEDS: MIRTAZAPINE 15 MG TABLET NG SCH (21:30)
[2021-12-15] MEDS: ACETAMINOPHEN 650 MG/20.3 ML UDC NG PRN (21:30)
--- NOTE | 2021-12-15 22:39 | NUR ---
ICU/STRATEGY INTERN PT WAS GIVEN TYLENOL VIA G/TUBE FOR PAIN. PT'S FLACC SCALE IS 7/10. WILL CONTINUE TO MONITOR THIS PT AND HIS PAIN.
[2021-12-16] VITALS (23 sets, daily range): BP systolic 103–144; BP diastolic 76–109
[2021-12-16 05:17] LABS: BASOPHILS % (AUTO) 0.4 % (0.0-2.0); EOSINOPHILS % (AUTO) 2.9 % (0.0-6.0); HEMATOCRIT 33 % (39-51); HEMOGLOBIN 10.9 g/dL (13.5-17.5); LYMPHOCYTES # (AUTO) 1.5 K/uL (0.8-4.8); LYMPHOCYTES % (AUTO) 20.1 % (20.0-44.0); MEAN CORPUSCULAR HGB CONC 33 g/dl (31.0-36.0); MEAN CORPUSCULAR VOLUME 86 fL (80-96); MONOCYTES # (AUTO) 0.6 K/uL (0.1-1.30); MONOCYTES % (AUTO) 7.5 % (2.0-12.0); NEUTROPHILS # (AUTO) 5.2 K/uL (1.8-8.9); NEUTROPHILS % (AUTO) 69.1 % (43.0-81.0); PLATELET COUNT (AUTO) 311 K/uL (150-450); RED BLOOD CELL COUNT(AUTO) 3.81 MIL/uL (4.5-6.0); WHITE BLOOD COUNT (AUTO) 7.5 K/uL (4.3-11.0)
[2021-12-16 05:36] LABS: CALCIUM, SERUM 8.6 mg/dL (8.5-10.1); MAGNESIUM 2.3 mg/dL (1.8-2.4); PHOSPHORUS 3.6 mg/dL (2.5-4.9)
[2021-12-16] MEDS: BLOOD SUGAR DIAGNOSTIC 1 EACH STRIP IN SCH ×4 (06:12→23:34)
--- NOTE | 2021-12-16 07:30 | NUR ---
RN NOTES PT FOUND SLEEPING DISPLAYING NO S/S OF DISTRESS, FLACC = 0 AND BREATHING IS EVEN AND UNLABORED WITH SNORING. L UA ML IS PATIENT AND INTACT. APPROX 15 ML RESIDUAL MEASURED VIA NG TUBE. PRATHER CATH BELOW PATIENT DRAINING BY GRAVITY. VSS, RN WILL MONITOR AND TREAT THROUGHOUT SHIFT. SAFETY MEASURES IN PLACE, BED LOCKED AND IN LOWEST POSITION, SIDE RAILS UPX2, CALL LIGHT WITHIN REACH, BED ALARM ARMED.
[2021-12-16] MEDS: CHOLECALCIFEROL 1,000 UNIT TABLET (VIT D3) NG SCH (08:16)
[2021-12-16] MEDS: LEVETIRACETAM SOL (5 ML) 100 MG/ML UDC GT SCH ×2 (08:16→20:58)
[2021-12-16] MEDS: MODAFINIL 100 MG TABLET NG SCH (08:16)
[2021-12-16] MEDS: GLUCERNA 1.2 1,000 ML BOTTLE NG SCH (12:33)
--- NOTE | 2021-12-16 19:30 | NUR ---
RN NOTES PT FOUND SLEEPING DISPLAYING NO S/S OF DISTRESS, FLACC = 0 AND BREATHING IS EVEN AND UNLABORED WITH SNORING. L UA ML IS PATIENT AND INTACT. NG TUBE REPLACED, WAITING FOR CXR TO CONFIRM PLACEMENT. PRATHER CATH BELOW PATIENT DRAINING BY GRAVITY. BILATERAL SOFT WRISTS APPLIED, PULSES PALPATED AND CAP REFILL < 3 SECONDS BILATERALLY. SAFETY MEASURES IN PLACE, BED LOCKED AND IN LOWEST POSITION, SIDE RAILS UPX2, CALL LIGHT WITHIN REACH, BED ALARM ARMED. PT ENDORSED IN STABLE CONDITION FOR SID.
--- NOTE | 2021-12-16 20:30 | NUR ---
RN NOTE CONFIRMED NG PLACEMENT VIA XRAY RESULT, WILL GIVEN MEDICATION AND FEEDING
[2021-12-16] MEDS: ATORVASTATIN 40 MG TABLET NG SCH (21:03)
[2021-12-16] MEDS: MIRTAZAPINE 15 MG TABLET NG SCH (21:03)
--- NOTE | 2021-12-16 21:15 | NUR ---
CHUTE LOADER NOTE: RECEIVED PATIENT AND REPORT AT BEDSIDE ON UNIT. PATIENT IN NAD AND STABLE AT THIS TIME.
--- NOTE | 2021-12-16 21:33 | NUR ---
RN NOTE TRANSFER PT TRANSFERRED TO ROOM 320-1 IN STABLE CONDITION UNDER ACLS MONITORING ACCOMPANIED BY BUSINESS PROCESS ARCHITECT, ED. NO BELONGINGS NOTED. ALL DUE MEDS GIVEN. REPORT GIVEN TO JERSEY STEWART AT BEDSIDE.
[2021-12-17] VITALS (8 sets, daily range): BP systolic 124–143; BP diastolic 76–106
--- NOTE | 2021-12-17 00:51 | NUR ---
SOCIAL SERVICES NOTE: NOTIFIED MD RE: PATIENT'S RESTLESSNESS AND DBP OF 106. NEW ORDERS FOLLOWS: HYDRALAZINE 10MG IVP Q6HR PRN FOR SBP >160 OR DBP >110. ATIVAN 0.25MG Q6HR PRN IVP FOR RESTLESSNESS.
[2021-12-17] MEDS ORDERED: hydrALAZINE HCL IV 20 MG VIAL IV PRN (01:00)
[2021-12-17] MEDS: LORAZEPAM INJ 2 MG/ML VIAL IV PRN (03:26)
[2021-12-17] MEDS: BLOOD SUGAR DIAGNOSTIC 1 EACH STRIP IN SCH ×4 (05:14→23:55)
[2021-12-17] MEDS: INSULIN REGULAR, HUMAN 100 UNIT/ML 3 ML VIAL SQ PRN ×2 (05:15)
--- NOTE | 2021-12-17 06:00 | NUR ---
INSPECTOR LINE CLOSING NOTE: PATIENT IN BED, EYES CLOSED, SLEEPING, SNORING. EASILY AROUSED BY VOICE COMMAND. PATIENT'S PRIMARY LANGUAGE IS TAGALOG. UNDERSTANDS SOME UKRAINIAN. ALERT AND ORIENTED TO PERSON. VERY RESTLESS. ATTEMPTING TO PULL AT NGT. FOLLOWS SIMPLE COMMANDS PERIODICALLY. NGT SECURED IN PLACE, FLUSHED AND AUSCULTATED FOR PLACEMENT. FREE WATER GIVEN PER MD ORDER. NGT PATENT. NO RESIDUAL OBSERVED. GLUCERNA 1.2 INFUSING AT 15 GGTS/MINUTE TO GRAVITY UNTIL PUMP AVAILABLE. ABDOMEN SOFT AND NON-TENDER. NORMOACTIVE BSX4. LUNG SOUNDS ARE COARSE RHONCHI SCATTERED THROUGHOUT BILATERAL LUNG REHMAN. PATIENT STABLE ON 3L O2 VIA NC. MOIST PRODUCTIVE COUGH OF YELLOW, FROTHY SPUTUM OBSERVED. F/C IN PLACE, PATENT AND DRAINING CLEAR, YELLOW URINE. SKIN IS C/D/I THROUGHOUT. KHUSHI MIDLINE FLUSHED AND PATENT. NO S/SX OF ERYTHEMA/INFILTRATION TO OR SURROUNDING INSERTION SITE. DRESSING C/D/I. TELEMETRY READING SR-ST THROUGHOUT THE NIGHT. ATIVAN ADMINISTERED X1 PER MD PRN ORDER WITH EFFECTIVE RESULTS. BED IN LOW/LOCKED POSITION. SIDE RAILS UP X2. HOB ELEVATED > SEMI WILL'S POSITION. CALL LIGHT WITHIN REACH.
[2021-12-17 07:14] LABS: BASOPHILS # (AUTO) 0.1 K/uL (0.0-0.2); BASOPHILS % (AUTO) 0.6 % (0.0-2.0); EOSINOPHILS % (AUTO) 0.9 % (0.0-6.0); HEMATOCRIT 35 % (39-51); HEMOGLOBIN 11.5 g/dL (13.5-17.5); LYMPHOCYTES # (AUTO) 1.5 K/uL (0.8-4.8); LYMPHOCYTES % (AUTO) 15.9 % (20.0-44.0); MEAN CORPUSCULAR HGB CONC 32 g/dl (31.0-36.0); MEAN CORPUSCULAR VOLUME 87 fL (80-96); MONOCYTES # (AUTO) 0.6 K/uL (0.1-1.30); NEUTROPHILS # (AUTO) 7.3 K/uL (1.8-8.9); NEUTROPHILS % (AUTO) 76.6 % (43.0-81.0); PLATELET COUNT (AUTO) 318 K/uL (150-450); RED BLOOD CELL COUNT(AUTO) 4.06 MIL/uL (4.5-6.0); WHITE BLOOD COUNT (AUTO) 9.5 K/uL (4.3-11.0)
--- NOTE | 2021-12-17 07:30 | NUR ---
PARCEL POST WEIGHER OPENING NOTES RECEIVED PATIENT ON BED AWAKE AND A/O X2. ON O2 AT 3LPM VIA NASAL CANNULA. NO SOB NOTED. NOT IN DISTRESS. WITH IV ACCESS AT LEFT UPPER ARM MIDLINE, SALINE LOCKED, PATENT AND INTACT. WITH NGT IN PLACED FOR FEEDING. WITH PRATHER CATHETER IN PLACED DRAINING CLEAR YELLOW COLORED URINE. ON TELE MONITOR CURRENTLY READING SINUS TACHYCARDIA AT 110BPM. SAFETY MEASURES IN PLACED. CALL LIGHT WITHIN REACH. BED ON LOWEST LOCKED POSITION, SIDE RAILS UP X3. WILL CONTINUE TO MONITOR.
[2021-12-17 07:58] LABS: CALCIUM, SERUM 9.1 mg/dL (8.5-10.1); CREATININE 0.8 mg/dL (0.6-1.3); MAGNESIUM 2.5 mg/dL (1.8-2.4); PHOSPHORUS 2.8 mg/dL (2.5-4.9); POTASSIUM 3.8 mmol/L (3.5-5.1)
[2021-12-17] MEDS: MODAFINIL 100 MG TABLET NG SCH (08:15)
[2021-12-17] MEDS: LEVETIRACETAM SOL (5 ML) 100 MG/ML UDC GT SCH ×2 (08:15→21:33)
[2021-12-17] MEDS: CHOLECALCIFEROL 1,000 UNIT TABLET (VIT D3) NG SCH (08:15)
--- NOTE | 2021-12-17 18:38 | NUR ---
MS RN CLOSING NOTES PATIENT ON BED AWAKE AND A/O X2. ON O2 AT 3LPM VIA NASAL CANNULA. NO SOB NOTED. NOT IN DISTRESS. WITH IV ACCESS AT LEFT UPPER ARM MIDLINE, SALINE LOCKED, PATENT AND INTACT. WITH NGT IN PLACED FOR FEEDING WITH GLUCERNA 1.2 AT 30ML/HR. WITH PRATHER CATHETER IN PLACED DRAINING CLEAR YELLOW COLORED URINE AT 250ML OUTPUT. SAFETY MEASURES IN PLACED. CALL LIGHT WITHIN REACH. BED ON LOWEST LOCKED POSITION, SIDE RAILS UP X3. WILL ENDORSE TO NEXT SHIFT FOR SID.
[2021-12-17] MEDS: GLUCERNA 1.2 1,000 ML BOTTLE NG SCH (18:57)
--- NOTE | 2021-12-17 19:30 | NUR ---
MS RN OPENING NOTES RECEIVED PATIENT IN BED AWAKE AND A/O X2. ON O2 AT 3LPM VIA NASAL CANNULA. NO SOB OR S/S OF RESPIRATORY DISTRESS NOTED. IV ACCESS LEFT UPPER ARM MIDLINE, SALINE LOCKED, PATENT AND INTACT. NGT IN PLACE FOR FEEDING WITH GLUCERNA 1.2 AT 35ML/HR. PRATHER CATHETER IN PLACE DRAINING CLEAR YELLOW COLORED URINE. SAFETY PRECAUTIONS IN PLACE. BED IN LOWEST LOCKED POSITION, HOB ELEVATED, SIDE RAILS UP X3, AND CALL LIGHT AND TABLE WITHIN REACH. WILL CONTINUE PLAN OF CARE.
[2021-12-17] MEDS: ATORVASTATIN 40 MG TABLET NG SCH (21:34)
[2021-12-17] MEDS: MIRTAZAPINE 15 MG TABLET NG SCH (21:34)
[2021-12-18] MEDS: BLOOD SUGAR DIAGNOSTIC 1 EACH STRIP IN SCH ×3 (05:49→17:01)
--- NOTE | 2021-12-18 06:54 | NUR ---
MS RN CLOSING NOTES PATIENT IN BED AWAKE AND A/O X2. ON O2 AT 3LPM VIA NASAL CANNULA. NO SOB OR S/S OF RESPIRATORY DISTRESS NOTED. IV ACCESS LEFT UPPER ARM MIDLINE, SALINE LOCKED, PATENT AND INTACT. NGT IN PLACE AND KEPT NPO AFTER MIDNIGHT. PRATHER CATHETER IN PLACE DRAINING CLEAR YELLOW COLORED URINE. SAFETY PRECAUTIONS IN PLACE. BED IN LOWEST LOCKED POSITION, HOB ELEVATED, SIDE RAILS UP X3, AND CALL LIGHT AND TABLE WITHIN REACH. WILL ENDORSE TO ONCOMING NURSE FOR SID.
--- NOTE | 2021-12-18 07:30 | NUR ---
MS RN OPENING NOTES RECEIVED PATIENT IN BED AWAKE AND A/O X2. ON O2 AT 3LPM VIA NASAL CANNULA. NO SOB OR S/S OF RESPIRATORY DISTRESS NOTED. IV ACCESS LEFT UPPER ARM MIDLINE, SALINE LOCKED, PATENT AND INTACT. WITH NGT IN PLACED WITH GLUCERNA 1.2 AT 45ML/HR INFUSING WELL. PRATHER CATHETER IN PLACE DRAINING CLEAR YELLOW COLORED URINE. SAFETY PRECAUTIONS IN PLACE. BED IN LOWEST LOCKED POSITION, HOB ELEVATED, SIDE RAILS UP X3, AND CALL LIGHT AND TABLE WITHIN REACH. WILL CONTINUE TO MONITOR FOR SID.
[2021-12-18 08:42] VITALS: BP 142/98
[2021-12-18 08:59] LABS: CALCIUM, SERUM 8.9 mg/dL (8.5-10.1); CREATININE 0.9 mg/dL (0.6-1.3); MAGNESIUM 2.2 mg/dL (1.8-2.4); PHOSPHORUS 3.1 mg/dL (2.5-4.9); POTASSIUM 4.1 mmol/L (3.5-5.1)
[2021-12-18] MEDS: CHOLECALCIFEROL 1,000 UNIT TABLET (VIT D3) NG SCH (09:00)
[2021-12-18] MEDS: MODAFINIL 100 MG TABLET NG SCH (09:00)
[2021-12-18] MEDS: LEVETIRACETAM SOL (5 ML) 100 MG/ML UDC GT SCH ×2 (09:00→22:07)
[2021-12-18 09:32] LABS: BASOPHILS # (AUTO) 0.1 K/uL (0.0-0.2); MEAN CORPUSCULAR HGB CONC 33 g/dl (31.0-36.0)
[2021-12-18 10:30] LABS: BASOPHILS % (AUTO) 0.5 % (0.0-2.0); EOSINOPHILS % (AUTO) 1.6 % (0.0-6.0); HEMATOCRIT 37 % (39-51); LYMPHOCYTES % (AUTO) 20.5 % (20.0-44.0); MEAN CORPUSCULAR VOLUME 86 fL (80-96); MONOCYTES # (AUTO) 0.6 K/uL (0.1-1.30); MONOCYTES % (AUTO) 6.1 % (2.0-12.0); NEUTROPHILS % (AUTO) 71.3 % (43.0-81.0); PLATELET COUNT (AUTO) 333 K/uL (150-450); RED BLOOD CELL COUNT(AUTO) 4.27 MIL/uL (4.5-6.0); WHITE BLOOD COUNT (AUTO) 9.8 K/uL (4.3-11.0)
[2021-12-18 16:06] VITALS: BP 142/100
--- NOTE | 2021-12-18 18:25 | NUR ---
MS PUTNAM OPENING NOTES RECEIVED PATIENT IN BED AWAKE AND A/O X2. ON O2 AT 3LPM VIA NASAL CANNULA. NO SOB OR S/S OF RESPIRATORY DISTRESS NOTED. IV ACCESS LEFT UPPER ARM MIDLINE, SALINE LOCKED, PATENT AND INTACT. WITH NGT IN PLACED WITH GLUCERNA 1.2 AT 45ML/HR INFUSING WELL. PRATHER CATHETER IN PLACE DRAINING CLEAR YELLOW COLORED URINE. SAFETY PRECAUTIONS IN PLACE. BED IN LOWEST LOCKED POSITION, HOB ELEVATED, SIDE RAILS UP X3, AND CALL LIGHT AND TABLE WITHIN REACH. WILL ENDORSE TO NEXT SHIFT FOR SID. Addendum: 12/18/21 at 1826 by MELISSA NOVA RN ERROR.
--- NOTE | 2021-12-18 19:51 | NUR ---
RN OPENING NOTES RN OPENING NOTES RECEIVED PT IN BED, ASLEEP, OPENS EYES TO VERBAL STIMULI. AOx1. ON NC 3 LPM AND TOLERATING WELL. NO SOB NOTE. NO S/SX OF RESPIRATORY DISTRESS NOTED. IV ACCESS IN HKUSHI MIDLINE. IV IS INTACT, PATENT, AND FLUSHING WELL. NG TUBE RUNNING TF @ 35 ML/HR. PRATHER CATHETER IN PLACE. BED IN LOWEST, LOCKED POSITION, SIDERAILS UPx2, AND BRAKES ON. TABLE AND CALL LIGHT WITHIN REACH. WILL CONTINUE TO MONITOR.
[2021-12-18 20:00] VITALS: BP 129/95
[2021-12-18] MEDS: MIRTAZAPINE 15 MG TABLET NG SCH (22:07)
[2021-12-18] MEDS: ATORVASTATIN 40 MG TABLET NG SCH (22:07)
--- NOTE | 2021-12-18 23:06 | NUR ---
PATIENT REMOVED NG TUBE DESPITE RESTRAINTS. INSERTED NEW NG TUBE. CHEST XRAY ORDERED. WILL CONTINUE TO MONITOR.
[2021-12-19] MEDS: BLOOD SUGAR DIAGNOSTIC 1 EACH STRIP IN SCH ×5 (00:24→23:42)
--- NOTE | 2021-12-19 06:48 | NUR ---
RN CLOSING NOTES PT IN BED, ASLEEP, OPENS EYES TO VERBAL STIMULI. AOx1. ON NC 3 LPM AND TOLERATING WELL. NO SOB NOTED. NO S/SX OF RESPIRATORY DISTRESS NOTED. IV ACCESS IN KHUSHI MIDLINE. IV IS INTACT, PATENT, AND FLUSHING WELL. PT KEPT NPO FOR G-TUBE PLACEMENT. PRATHER CATHETER IN PLACE DRAINING CLOUDY URING, ABOUT 300 ML. ALL NEEDS MET. PT KEPT CLEAN AND DRY. BED IN LOWEST, LOCKED POSITION, SIDERAILS UPx2, AND BRAKES ON. TABLE AND CALL LIGHT WITHIN REACH. WILL ENDORSE TO ONCOMING SHIFT FOR SID.
[2021-12-19 07:07] LABS: BASOPHILS % (AUTO) 0.4 % (0.0-2.0); EOSINOPHILS % (AUTO) 0.3 % (0.0-6.0); HEMATOCRIT 34 % (39-51); HEMOGLOBIN 11.1 g/dL (13.5-17.5); LYMPHOCYTES # (AUTO) 1.5 K/uL (0.8-4.8); LYMPHOCYTES % (AUTO) 12.6 % (20.0-44.0); MEAN CORPUSCULAR HGB CONC 33 g/dl (31.0-36.0); MEAN CORPUSCULAR VOLUME 85 fL (80-96); MONOCYTES # (AUTO) 0.8 K/uL (0.1-1.30); MONOCYTES % (AUTO) 6.5 % (2.0-12.0); NEUTROPHILS # (AUTO) 9.2 K/uL (1.8-8.9); NEUTROPHILS % (AUTO) 80.2 % (43.0-81.0); PLATELET COUNT (AUTO) 333 K/uL (150-450); RED BLOOD CELL COUNT(AUTO) 4.01 MIL/uL (4.5-6.0); WHITE BLOOD COUNT (AUTO) 11.5 K/uL (4.3-11.0)
--- NOTE | 2021-12-19 07:30 | NUR ---
MS RN OPENING NOTES RECEIVED PATIENT IN BED AWAKE AND A/O X2. ON O2 AT 3LPM VIA NASAL CANNULA. NO SOB OR S/S OF RESPIRATORY DISTRESS NOTED. IV ACCESS LEFT UPPER ARM MIDLINE, SALINE LOCKED, PATENT AND INTACT. WITH NGT IN PLACED, ON NPO AWAITING FOR PEG TUBE PLACEMENT. PRATHER CATHETER IN PLACE DRAINING CLEAR YELLOW COLORED URINE. SAFETY PRECAUTIONS IN PLACE. BED IN LOWEST LOCKED POSITION, HOB ELEVATED, SIDE RAILS UP X3, AND CALL LIGHT AND TABLE WITHIN REACH. WILL CONTINUE TO MONITOR FOR SID.
[2021-12-19 07:45] LABS: CALCIUM, SERUM 8.4 mg/dL (8.5-10.1); MAGNESIUM 2.1 mg/dL (1.8-2.4); PHOSPHORUS 3.3 mg/dL (2.5-4.9); POTASSIUM 3.9 mmol/L (3.5-5.1)
[2021-12-19 08:00] VITALS: BP 150/116
[2021-12-19] MEDS: CHOLECALCIFEROL 1,000 UNIT TABLET (VIT D3) NG SCH ×2 (09:00→17:18)
[2021-12-19] MEDS: LEVETIRACETAM SOL (5 ML) 100 MG/ML UDC GT SCH ×2 (09:00→21:02)
[2021-12-19] MEDS: MODAFINIL 100 MG TABLET NG SCH ×2 (09:00→17:18)
[2021-12-19] MEDS: FERROUS SULFATE UDC 300 MG/5 ML UDC GT SCH ×2 (09:00→17:18)
[2021-12-19 09:07] LABS: IMMUNOGLOBULIN A, SERUM 272 mg/dL (90-386); IMMUNOGLOBULIN G, SERUM 2757 mg/dL (603-1613); IMMUNOGLOBULIN M, SERUM 82 mg/dL (20-172)
[2021-12-19] MEDS: LORAZEPAM INJ 2 MG/ML VIAL IV PRN (13:24)
[2021-12-19 16:00] VITALS: BP 135/65
[2021-12-19] MEDS: GLUCERNA 1.2 1,000 ML BOTTLE NG SCH (16:37)
[2021-12-19 20:00] VITALS: BP 141/93
--- NOTE | 2021-12-19 20:02 | NUR ---
MS RN CLOSING NOTES PATIENT IN BED RESTING AND A/O X1. ON O2 AT 5LPM VIA NASAL CANNULA. NO SOB OR S/S OF RESPIRATORY DISTRESS NOTED. IV ACCESS LEFT UPPER ARM MIDLINE, SALINE LOCKED, PATENT AND INTACT. WITH NGT IN PLACED WITH GLUCERNA 1.2 AT 45ML/HR INFUSING WELL. PRATHER CATHETER IN PLACE DRAINING CLEAR YELLOW COLORED URINE. SAFETY PRECAUTIONS IN PLACE. BED IN LOWEST LOCKED POSITION, HOB ELEVATED, SIDE RAILS UP X3, AND CALL LIGHT AND TABLE WITHIN REACH. WILL ENDORSE TO NEXT SHIFT FOR SID.
[2021-12-19] MEDS: ACETAMINOPHEN 650 MG/20.3 ML UDC NG PRN (21:02)
[2021-12-19] MEDS: MIRTAZAPINE 15 MG TABLET NG SCH (21:02)
[2021-12-19] MEDS: ATORVASTATIN 40 MG TABLET NG SCH (21:02)
--- NOTE | 2021-12-20 | NUR ---
MS RN NOTES PT PULLED OUT NGT. WILL KEEP PT NPO P MN. FOR PEG PLACEMENT IN AM. ASSET ACCOUNTANT NOTIFIED. WILL CONTINUE TO MONITOR.
[2021-12-20] MEDS: BLOOD SUGAR DIAGNOSTIC 1 EACH STRIP IN SCH ×4 (05:32→23:03)
--- NOTE | 2021-12-20 06:12 | NUR ---
MS RN NOTES PT AWAKE. RESPONSIVE TO TACTILE STIMULI. NON VERBAL. NOT IN ANY DISTRESS. NO SOB NOTED. NO S/SX OF ANY PAIN OR DISCOMFORT AT THIS TIME. WITH IV-ML PATENT & INTACT. AM CARE DONE. MONITORED ACCORDINGLY. CALL LIGHT WITHIN REACH. BED IN LOWEST POSITION. SR UP X 3 WITH BED ALARM ON FOR SAFETY. WILL ENDORSE TO NEXT SHIFT.
[2021-12-20 06:26] LABS: BASOPHILS % (AUTO) 0.4 % (0.0-2.0); EOSINOPHILS % (AUTO) 0.6 % (0.0-6.0); HEMATOCRIT 33 % (39-51); HEMOGLOBIN 10.8 g/dL (13.5-17.5); LYMPHOCYTES # (AUTO) 1.6 K/uL (0.8-4.8); LYMPHOCYTES % (AUTO) 17.9 % (20.0-44.0); MEAN CORPUSCULAR HGB CONC 33 g/dl (31.0-36.0); MEAN CORPUSCULAR VOLUME 85 fL (80-96); MONOCYTES # (AUTO) 0.8 K/uL (0.1-1.30); MONOCYTES % (AUTO) 8.9 % (2.0-12.0); NEUTROPHILS # (AUTO) 6.4 K/uL (1.8-8.9); NEUTROPHILS % (AUTO) 72.2 % (43.0-81.0); PLATELET COUNT (AUTO) 307 K/uL (150-450); RED BLOOD CELL COUNT(AUTO) 3.83 MIL/uL (4.5-6.0); WHITE BLOOD COUNT (AUTO) 8.8 K/uL (4.3-11.0)
[2021-12-20 07:11] LABS: CALCIUM, SERUM 9.4 mg/dL (8.5-10.1); CREATININE 0.8 mg/dL (0.6-1.3); MAGNESIUM 2.6 mg/dL (1.8-2.4); PHOSPHORUS 2.9 mg/dL (2.5-4.9); POTASSIUM 3.8 mmol/L (3.5-5.1)
--- NOTE | 2021-12-20 07:40 | NUR ---
MS RN OPENING NOTES RECEIVED PATIENT RESTING IN BED AROUSABLE VIA NAME OR TOUCH TO A/O X 1 (BASELINE). PATIENT TOLERATING 5 LPM O2 VIA NASAL CANNULA WELL WITH NO S/S OF DISTRESS. LEFT UPPER ARM MIDLINE INTACT, FLUSHING WELL WITH NO S/S OF INFECTION OR INFILTRATION. PRATHER CATHETER DRAINING CLEAR YELLOW URINE TO GRAVITY. SAFETY MEASURES IN PLACE: BED IN LOWEST LOCKED POSITION, SIDE RAILS UP X 3 WITH BED ALARM WITHIN REACH. WILL CONTINUE TO MONITOR.
[2021-12-20 08:00] VITALS: BP 131/60
[2021-12-20] MEDS: MODAFINIL 100 MG TABLET NG SCH (08:42)
[2021-12-20] MEDS: FERROUS SULFATE UDC 300 MG/5 ML UDC GT SCH (08:42)
[2021-12-20] MEDS: LEVETIRACETAM SOL (5 ML) 100 MG/ML UDC GT SCH ×2 (08:42→22:08)
[2021-12-20] MEDS: CHOLECALCIFEROL 1,000 UNIT TABLET (VIT D3) NG SCH (08:42)
[2021-12-20 10:07] LABS: *SPE A/G RATIO 0.5 (0.7-1.7); *SPE ALPHA-1-GLOBULIN 0.5 g/dL (0.0-0.4); *SPE BETA GLOBULIN 1.2 g/dL (0.7-1.3); *SPE M-SPIKE Not Observed g/dL (Not Observed)
--- NOTE | 2021-12-20 10:42 | NUR ---
RN NOTES REPORT GIVEN TO JERSEY MARTINEZ FOR CONTINUITY OF CARE.
--- NOTE | 2021-12-20 10:44 | NUR ---
RN NOTE RECEIVED REPORT, PATIENT IN STABLE CONDITION, WILL CONTINUE TO MONITOR
[2021-12-20 11:06] LABS: ABG BASE EXCESS 2.1 mmol/L; ABG OXYGEN SATURATION 92.4 % (92.0-98.5); ABG PCO2 34.8 mmHg (35.0-45.0); AaDO2 124.4 mmHg; COHb 0.3 % (0.5-1.5); MetHb 0.4 % (0.0-1.5); O2Hb 91.8 % (94.0-97.0); SITE, ABG Right Brachial; VENT MODE, BG 3 LPM NC
[2021-12-20] MEDS: INSULIN REGULAR, HUMAN 100 UNIT/ML 3 ML VIAL SQ PRN ×3 (11:06→23:03)
--- NOTE | 2021-12-20 13:57 | NUR ---
RN NOTE RECEIVED PATIENT BACK FROM GTUBE PLACEMENT PROCEDURE VITALS BP 133/92, HR 103, RR18, O2 SAT 100%. GAVE NEW ORDER FOR D5 1/2 NS @ 75ML/HR
[2021-12-20] MEDS ORDERED: IV D5/0.45 NACL 1,000 ML IV PRN (15:00)
[2021-12-20 16:00] VITALS: BP 116/84
--- NOTE | 2021-12-20 18:23 | NUR ---
MS RN CLOSING NOTES PATIENT IN BED RESTING AND A/O X1. PATIENT IS BREATHING EVENLY AND NONLABORED ON O2 AT 5LPM VIA NASAL CANNULA. NO SOB OR S/S OF RESPIRATORY DISTRESS NOTED. NO SIGNS OF PAIN OR DISCOMFORT AT THIS TIME. IV ACCESS LEFT UPPER ARM MIDLINE RUNNING D5 1/2 NS @ 75 ML/HR PATENT AND INTACT.PATIENT IS POST PROCEDURE FOR GTUBE PLACEMENT NPO EXPECT MEDICATIONS TILL TOMORROW. PRATHER CATHETER IN PLACE DRAINING CLEAR YELLOW COLORED URINE. ALL MEDICATIONS WERE GIVEN ORDERED. SAFETY PRECAUTIONS IN PLACE. BED IN LOWEST LOCKED POSITION, HOB ELEVATED, SIDE RAILS UP X3, AND CALL LIGHT AND TABLE WITHIN REACH. WILL ENDORSE TO ONCOMING SHIFT
--- NOTE | 2021-12-20 19:05 | NUR ---
MS RN OPENING NOTES: RECEIVED REPORT AT PATIENT'S BEDSIDE. PATIENT IN BED RESTING AND A/O X1, NAD AND VSS AT THIS TIME. RR EVEN AND UNLABORED. SPO2 >92% ON 5L O2 VIA NC. NO SIGNS OF PAIN OR DISCOMFORT AT THIS TIME. CONTINUOUS IV TO KHUSHI MIDLINE RUNNING D5 1/2 NS @ 75 ML/HR. NO S/SX OF OCCLUSION. NO S/SX OF ERYTHEMA/INFILTRATION TO OR SURROUNDING CATHETER INSERTION SITE. DRESSING C/D/I. PATIENT IS S/P GTUBE PLACEMENT, NPO EXPECT MEDICATIONS UNTIL TOMORROW AM. F/C IN PLACE PATENT AND DRAINING CLEAR YELLOW URINE. SAFETY AND ASPIRATION PRECAUTIONS MAINTATINED, BED IN LOWEST LOCKED POSITION, HOB ELEVATED TO SEMI FOWLERS POSITION, SIDE RAILS UP X2, CALL LIGHT AND TABLE WITHIN REACH.
[2021-12-20 20:45] VITALS: BP 114/81
[2021-12-20] MEDS: MIRTAZAPINE 15 MG TABLET NG SCH (22:08)
[2021-12-20] MEDS: ATORVASTATIN 40 MG TABLET NG SCH (22:08)
[2021-12-21] VITALS: BP 114/81
[2021-12-21] MEDS: GLUCERNA 1.2 1,000 ML BOTTLE NG SCH (05:52)
--- NOTE | 2021-12-21 05:52 | NUR ---
MS RN NOTE: 0400: GLUCERNA 1.2 STARTED TO G-TUBE @45ML/HR PER ORDER. 0550: G-TUBE CHECKED FOR RESIDUAL. NO RESIDUAL OBSERVED.
[2021-12-21] MEDS: BLOOD SUGAR DIAGNOSTIC 1 EACH STRIP IN SCH ×3 (06:08→17:18)
[2021-12-21] MEDS: INSULIN REGULAR, HUMAN 100 UNIT/ML 3 ML VIAL SQ PRN ×3 (06:14→17:19)
[2021-12-21 07:09] LABS: BASOPHILS % (AUTO) 0.5 % (0.0-2.0); EOSINOPHILS % (AUTO) 0.9 % (0.0-6.0); HEMATOCRIT 33 % (39-51); HEMOGLOBIN 10.6 g/dL (13.5-17.5); LYMPHOCYTES # (AUTO) 1.5 K/uL (0.8-4.8); MEAN CORPUSCULAR HGB CONC 32 g/dl (31.0-36.0); MEAN CORPUSCULAR VOLUME 86 fL (80-96); MONOCYTES # (AUTO) 0.5 K/uL (0.1-1.30); NEUTROPHILS # (AUTO) 5.3 K/uL (1.8-8.9); NEUTROPHILS % (AUTO) 71.6 % (43.0-81.0); PLATELET COUNT (AUTO) 312 K/uL (150-450); WHITE BLOOD COUNT (AUTO) 7.5 K/uL (4.3-11.0)
[2021-12-21 07:19] LABS: CALCIUM, SERUM 8.9 mg/dL (8.5-10.1); CREATININE 0.9 mg/dL (0.6-1.3); POTASSIUM 3.6 mmol/L (3.5-5.1)
--- NOTE | 2021-12-21 07:19 | NUR ---
MS RN OPENING NOTES RECEIVED PATIENT AWAKE IN BED IN NO ACUTE SIGNS OF DISTRESS, HOB ELEVATED. A/O X 1-2. RESPONSIVE TO VERBAL STIMULI, NO C/O PAIN AT THIS TIME. PATIENT TOLERATING 5 LPM O2 VIA N/C WELL WITH NO SOB NOTED. KHUSHI MIDLINE INTACT AND FLUSHING WELL WITH NO S/S OF INFECTION OR INFILTRATION AT SITE NOTED. G-TUBE IN PLACE WITH FEEDING OF GLUCERNA 1.2 @ 45ML/HR IN PROGRESS, TOLERATING WELL. ASPIRATION PRECAUTIONS MAINTAINED. PRATHER CATHETER INTACT DRAINING CLEAR YELLOW URINE TO GRAVITY. PT WITH B/L SOFT WRIST RESTRAINTS ON, SKIN AND CIRCULATION WNL. SAFETY MEASURES IN PLACE: BED IN LOWEST LOCKED POSITION, SIDE RAILS UP X 3, BED ALARM ON AND KAITLIN LIGHT WITHIN REACH. WILL CONTINUE TO MONITOR PT.
--- NOTE | 2021-12-21 07:20 | NUR ---
MS RN CLOSING NOTE: REPORTED OFF TO ONCOMING RN. NO CHANGE IN RESIDENT'S CONDITION. PATIENT IS STABLE AND IN NAD. G-TUBE FEEDING INFUSING PER ORDER WITHOUT COMPLICATION.
--- NOTE | 2021-12-21 07:52 | NUR ---
RN NOTES PT SEEN BY DR ENCARNACION WITH ORDER TO D/C IVF OF D5 1/2 NS AND TO ADMINISTER WATER FLUSH OF 300ML EVERY 8HRS.
[2021-12-21 08:00] VITALS: BP 162/75
[2021-12-21] MEDS: FERROUS SULFATE UDC 300 MG/5 ML UDC GT SCH (08:29)
[2021-12-21] MEDS: CHOLECALCIFEROL 1,000 UNIT TABLET (VIT D3) NG SCH (08:29)
[2021-12-21] MEDS: MODAFINIL 100 MG TABLET NG SCH (08:29)
[2021-12-21] MEDS: LEVETIRACETAM SOL (5 ML) 100 MG/ML UDC GT SCH ×2 (08:29→21:08)
[2021-12-21] MEDS ORDERED: LEVE100S GT (08:36)
[2021-12-21] MEDS ORDERED: NUT.237L45 NG (08:36)
[2021-12-21] MEDS ORDERED: FERR300L GT (08:36)
--- NOTE | 2021-12-21 11:19 | NUR ---
RN NOTES COVID 19 ANTIGEN SWAB DONE AND BROUGHT SPECIMEN TO LAB. WILL FOLLOW-UP RESULTS
[2021-12-21 16:00] VITALS: BP 129/69
--- NOTE | 2021-12-21 16:48 | NUR ---
RN NOTES PT FOR D/C TO [facility] TODAY, CALLED AND REPORT TO JERSEY LOPEZ. PT'S SON PRESENT AT BEDSIDE AND AWARE OF PT'S D/C TODAY.
--- NOTE | 2021-12-21 18:51 | NUR ---
RN NOTES CALLED [facility] AT [facility] #[phone], SPOKED TO BRISEYDA AND STATED THAT TRANSPORTATION WILL COME BEFORE 8PM. WILL ENDORSE
--- NOTE | 2021-12-21 18:53 | NUR ---
MS RN CLOSING NOTES PT IN BED AWAKE AT THIS TIME. HOB ELEVATED. A/O X 1-2. RESPONSIVE TO VERBAL STIMULI. PT TOLERATING 3 LPM O2 VIA N/C WELL WITH NO SOB NOTED. KHUSHI MIDLINE INTACT AND FLUSHING WELL WITH NO S/S OF INFECTION OR INFILTRATION AT SITE NOTED. PEG-TUBE IN PLACE WITH FEEDING OF GLUCERNA 1.2 @ 45ML/HR IN PROGRESS, TOLERATING WELL. ASPIRATION PRECAUTIONS MAINTAINED. PT WITH B/L SOFT WRIST RESTRAINTS ON, SKIN AND CIRCULATION WNL. SAFETY MEASURES IN PLACE: BED IN LOWEST LOCKED POSITION, SIDE RAILS UP X 3, BED ALARM ON AND KAITLIN LIGHT WITHIN REACH. PT FOR DISCHARGE TO [facility] TONIGHT, WILL COME BEFORE 1999. WILL ENDORSE TO [facility]
--- NOTE | 2021-12-21 19:52 | NUR ---
MS RN OPENING NOTES PT IN BED AWAKE AT THIS TIME. HOB ELEVATED. A/O X 1-2. RESPONSIVE TO VERBAL STIMULI. PT TOLERATING 3 LPM O2 VIA N/C WELL WITH NO SOB NOTED. KHUSHI MIDLINE INTACT AND FLUSHING WELL WITH NO S/S OF INFECTION OR INFILTRATION AT SITE NOTED. PEG-TUBE IN PLACE WITH FEEDING OF GLUCERNA 1.2 @ 45ML/HR IN PROGRESS, TOLERATING WELL. ASPIRATION PRECAUTIONS MAINTAINED. PT WITH B/L SOFT WRIST RESTRAINTS ON, SKIN AND CIRCULATION WNL. SAFETY MEASURES IN PLACE: BED IN LOWEST LOCKED POSITION, SIDE RAILS UP X 3, BED ALARM ON AND KAITLIN LIGHT WITHIN REACH. PT FOR [facility]CHARGE TO [facility] T[facility]IGHT, WILL COME BEFORE 1999. WILL CONTINUE TO MONITOR FOR NOW.
[2021-12-21 20:00] VITALS: BP 118/83
--- NOTE | 2021-12-21 20:00 | NUR ---
MS RN NOTES CALLED [facility] REGARDING PT INSECTICIDE SUPERVISOR WAS TOLD THEY WERE IN THE PARKING LOT AND WOULD BE UP SOON. MIDLINE REMOVED PT READY FOR INSECTICIDE SUPERVISOR.
--- NOTE | 2021-12-21 20:30 | NUR ---
MS RN NOTES CALLED [facility] AGAIN REGARDING HISTOLOGICAL ILLUSTRATOR PER SUPERVISOR CONCRETE STONE FABRICATING THERE WAS A MISTAKE AMBULANCE STILL HELD UP AT ER IN ANOTHER HOSPITAL WILL BE HERE IN 50 - 60 MINS. WILL CONTINUE TO MONITOR PT.
[2021-12-21] MEDS: ATORVASTATIN 40 MG TABLET NG SCH (22:27)
[2021-12-21] MEDS: MIRTAZAPINE 15 MG TABLET NG SCH (22:27)
--- NOTE | 2021-12-21 23:12 | NUR ---
MS RN NOTES OPTOELECTRONIC TECHNICIAN AT BEDSIDE REPORT GIVEN PT STABLE AT THIS TIME. PT CLEAN AND DRY. ALL NEEDS ATTENDED TO.
== END 2021-12-21 23:28 | DRG 720 ==
LOC: ER 22:25 → TRANSITION 11-26 00:50 → ICU 11-26 08:08 → MED 12-16 21:08 → TELE 12-16 21:38 → MED 12-17 09:35
PROVIDERS: ADMIT Nurse Practitioner Acute Care; ATTEND Internal Medicine
PROC: 5A1955Z Respiratory Ventilation, Greater than 96 Consecutive Hours (ICD-10-PCS; principal; 2021-11-26)
PROC: 0BH18EZ Insertion of Endotracheal Airway into Trachea, Via Natural or Artificial Opening Endoscopic (ICD-10-PCS; 2021-11-26)
PROC: 05H633Z Insertion of Infusion Device into Left Subclavian Vein, Percutaneous Approach (ICD-10-PCS; 2021-11-28)
PROC: B547ZZA Ultrasonography of Left Subclavian Vein, Guidance (ICD-10-PCS; 2021-11-28)
PROC: 0JB83ZX Excision of Abdomen Subcutaneous Tissue and Fascia, Percutaneous Approach, Diagnostic (ICD-10-PCS; 2021-11-30)
PROC: 0GBG3ZX Excision of Left Thyroid Gland Lobe, Percutaneous Approach, Diagnostic (ICD-10-PCS; 2021-12-19)
PROC: 0DH63UZ Insertion of Feeding Device into Stomach, Percutaneous Approach (ICD-10-PCS; 2021-12-20)
DX: A41.9 Sepsis, unspecified organism (principal); N17.0 Acute kidney failure with tubular necrosis; J96.01 Acute respiratory failure with hypoxia; G93.6 Cerebral edema; I61.8 Other nontraumatic intracerebral hemorrhage; G92.8 Other toxic encephalopathy; I21.4 Non-ST elevation (NSTEMI) myocardial infarction; E44.1 Mild protein-calorie malnutrition; J18.9 Pneumonia, unspecified organism; D68.69 Other thrombophilia; E86.0 Dehydration; R53.2 Functional quadriplegia; I42.9 Cardiomyopathy, unspecified; E87.0 Hyperosmolality and hypernatremia; E04.1 Nontoxic single thyroid nodule; E11.9 Type 2 diabetes mellitus without complications; E87.6 Hypokalemia; G40.909 Epilepsy, unspecified, not intractable, without status epilepticus; Z86.16 Personal history of COVID-19; Z20.822 Contact with and (suspected) exposure to COVID-19; G93.89 Other specified disorders of brain; R65.20 Severe sepsis without septic shock; I10 Essential (primary) hypertension; R13.10 Dysphagia, unspecified; R59.9 Enlarged lymph nodes, unspecified; I25.10 Atherosclerotic heart disease of native coronary artery without angina pectoris; K80.20 Calculus of gallbladder without cholecystitis without obstruction; D49.89 Neoplasm of unspecified behavior of other specified sites; R19.09 Other intra-abdominal and pelvic swelling, mass and lump; Z68.1 Body mass index [BMI] 19.9 or less, adult; Z74.01 Bed confinement status; D64.9 Anemia, unspecified; I25.2 Old myocardial infarction; D69.6 Thrombocytopenia, unspecified; I51.3 Intracardiac thrombosis, not elsewhere classified; K29.70 Gastritis, unspecified, without bleeding; Z77.22 Contact with and (suspected) exposure to environmental tobacco smoke (acute) (chronic); R93.1 Abnormal findings on diagnostic imaging of heart and coronary circulation; B95.62 Methicillin resistant Staphylococcus aureus infection as the cause of diseases classified elsewhere; Z93.0 Tracheostomy status; E05.90 Thyrotoxicosis, unspecified without thyrotoxic crisis or storm; Z98.2 Presence of cerebrospinal fluid drainage device; Z86.69 Personal history of other diseases of the nervous system and sense organs; G81.91 Hemiplegia, unspecified affecting right dominant side
CPT/HCPCS: 10021; 31720; 36415; 36600; 43246; 70450-TC; 70490-TC; 71045-TC; 71250-TC; 71260-TC; 75989; 76536-TC; 76770-TC; 77012-TC; 80048-TC; 80061-TC; 80076-TC; 80202-TC; 81001; 82570-TC; 82728-TC; 82784; 82803-TC; 82962-TC; 83540-TC; 83605-TC; 83615-TC; 83735-TC; 83880; 84100-TC; 84155; 84165; 84300-TC; 84439-TC; 84443-TC; 84484-TC; 85025-TC; 85610-TC; 85730-TC; 86334; 86480; 86800; 87040-TC; 87070-TC; 87081-TC; 87086-TC; 87806; 88108-TC; 88173-TC; 88305-TC; 88333-TC; 92526; 92611-TC; 93307-TC; 94002-TC; 94003-TC; 94640-TC; 94760-TC; 94762-TC; 94799-TC; 99082-TC; C9803; G0378; J1100; J1815; J1953; J2060; J2250; J2310; J2405; J2543; J2704; J3370; J3480; J3490; J7030; J7040; J7042; J7050; J7060; J7070; J7120; U0003